=== PATIENT | male | born 1970 | race Caucasian/White ===

== ENCOUNTER → 2020-10-12 16:26 | Outpatient (BNVA) | payer MEDICAID, SELFPAY | PROVIDERS: PCP Internal Medicine Geriatric Medicine; Referring Provider Internal Medicine Geriatric Medicine; Visit Provider Urology | DX: Z76.89 Persons encountering health services in other specified circumstances (principal) ==

== ENCOUNTER → 2020-10-17 09:22 | Outpatient (BNVA) | payer MEDICAID, SELFPAY | PROVIDERS: PCP Internal Medicine Geriatric Medicine; Referring Provider Internal Medicine Geriatric Medicine; Visit Provider Internal Medicine Gastroenterology | DX: Z76.89 Persons encountering health services in other specified circumstances (principal) ==

== ENCOUNTER → 2021-01-16 09:11 | Outpatient (BNVA) | payer MEDICAID, SELFPAY | PROVIDERS: PCP Internal Medicine Geriatric Medicine; Visit Provider Internal Medicine Gastroenterology ==

== ENCOUNTER → 2021-04-24 13:15 | Outpatient (BNVA) | payer MEDICAID, SELFPAY | PROVIDERS: PCP Nurse Practitioner Family; Visit Provider Urology | DX: E29.1 Testicular hypofunction (principal) | CPT/HCPCS: 99212 ==

== ENCOUNTER 2021-10-17 17:24 | Outpatient (REF) | payer MEDICAID, SELFPAY ==
[2021-10-17 18:34] LABS: Hematocrit 46.6 % (42.0-52.0); Hemoglobin 15.6 g/dl (14.0-18.0); Mean Corpuscular HGB Conc 33.5 g/dl (31.0-36.0); Mean Corpuscular Hemoglobin 27.4 pg (27.0-33.0); Mean Corpuscular Volume 81.8 fL (80.0-98.0); Mean Platelet Volume 10.2 fL (9.4-12.4); Platelet Count 245 X10*3/uL (160-400); Red Cell Distribution Width 13.5 % (11.0-16.0); White Blood Count 9.1 X10*3/uL (4.8-10.8)
[2021-10-17 18:57] LABS: Prostate Specific Antigen 2.37 ng/mL (<0.05-4.0)
[2021-10-22 12:56] LABS: Testosterone, Total 357 ng/dL (250-1100)
== END 2021-10-17 17:25 | disposition home or self-care (01) ==
LOC: HO.LAB 17:24
PROVIDERS: PCP Internal Medicine Geriatric Medicine; Visit Provider Urology
DX: Z12.5 Encounter for screening for malignant neoplasm of prostate (principal); E29.1 Testicular hypofunction
CPT/HCPCS: 36415; 84153; 84403; 85027

== ENCOUNTER → 2021-10-23 08:41 | Outpatient (BNVA) | payer MEDICAID, SELFPAY | PROVIDERS: PCP Internal Medicine Geriatric Medicine; Visit Provider Urology ==

== ENCOUNTER 2021-12-10 16:03 | Outpatient (REF) | payer MEDICAID, SELFPAY ==
--- NOTE | 2021-12-10 | PFT_ITS ---
INDICATION: COPD. SPIROMETRY: The FEV1 to FVC of 80% with an FEV1 of 3.21 L which is 82% predicted and FVC of 4.03 L which is 82% predicted. No significant response to bronchodilators noted. Normal maximum voluntary ventilation 92% predicted. LUNG VOLUMES: Total lung capacity 96% predicted with an expiratory reserve volume of 32% predicted. DIFFUSION CAPACITY: DLCO 91% predicted. COMPARISONS: None. INTERPRETATION: No obstructive nor restrictive ventilatory defects identified. No significant response to bronchodilators noted. Normal maximum voluntary ventilation. Lung volumes are within normal limits except for decrease in the expiratory reserve volume secondary to an elevated BMI. Normal diffusing capacity. If asthma is in the differential, methacholine challenge may be helpful in assessing for hyper-reactive airways, otherwise clinical correlation warranted. Benito Lion MD MR/MODL / [id number]
== END 2021-12-10 16:04 | disposition home or self-care (01) ==
LOC: HO.RESP 16:03
PROVIDERS: PCP Internal Medicine Geriatric Medicine; Visit Provider Internal Medicine Geriatric Medicine
DX: J44.9 Chronic obstructive pulmonary disease, unspecified (principal)
CPT/HCPCS: 94060; 94727; 94729

== ENCOUNTER → 2022-05-24 10:43 | Outpatient (BNVA) | payer MEDICAID, SELFPAY | PROVIDERS: PCP Internal Medicine Geriatric Medicine; Visit Provider Internal Medicine Gastroenterology | DX: R10.13 Epigastric pain (principal); K21.9 Gastro-esophageal reflux disease without esophagitis | CPT/HCPCS: 99212 ==

== ENCOUNTER → 2022-05-27 11:11 | Outpatient (BNVA) | payer MEDICAID, SELFPAY | PROVIDERS: PCP Internal Medicine Geriatric Medicine; Visit Provider Surgery | DX: K42.9 Umbilical hernia without obstruction or gangrene (principal); R10.13 Epigastric pain; K21.9 Gastro-esophageal reflux disease without esophagitis | CPT/HCPCS: 99202 ==

== ENCOUNTER → 2022-06-07 09:40 | Outpatient (REF) | payer MEDICAID, SELFPAY ==
--- NOTE | 2022-06-07 09:45 | CA_ITS ---
Transthoracic Echocardiogram Patient (Last, First, Middle): Clive Lion, Gender: Male Date of : 1970 Age: 52 Procedure Date: 06/07/2022 Procedure Type: Transthoracic Echocardiogram Location: OP Height: 177.8 cm Weight: 97.07 kg BSA: 2.15 m2 Heart Rate: bpm BP: 112 / 70 mmHg Blog Writer: TO Referring MD: Monica La Symptoms: R06.01 ORTHOPNEA R06,0 EDEMA Study Quality: Fair ECG Rhythm: Sinus Conclusions: - The left ventricular systolic function is mild to moderately decreased. The calculated ejection fraction is 41% by biplane method. - There is evidence of regional wall motion abnormalities. - No obvious valvular pathology seen on this study. Findings Left Ventricle Mildly increased left ventricular cavity size. There is mildly increased left ventricular wall thickness. The left ventricular systolic function is mild to moderately decreased. The calculated ejection fraction is 41% by biplane method. There is evidence of regional wall motion abnormalities. Wall Motion Rest Echo Findings The inferoseptal wall, the mid inferior, and mid inferolateral segments are hypokinetic. The basal inferior, apical septum, and basal inferolateral segments are akinetic. Right Ventricle Mildly increased right ventricular cavity size. There is normal right ventricular systolic function. Atria Both atria are normal in size. Aortic Valve There is a normal trileaflet aortic valve. There is no aortic valve stenosis. There is no aortic valve regurgitation. Mitral Valve The mitral valve appears normal. There is mild mitral annular calcification. There is no mitral valve regurgitation. There is no mitral valve stenosis. Pulmonic Valve The pulmonic valve is likely normal. There is trace pulmonic valve regurgitation. Tricuspid Valve Normal tricuspid valve structure. There is trace tricuspid valve regurgitation. The pulmonary artery systolic pressure is normal. Great Vessels The aortic annulus, sinuses of valsalva, and asc aorta are normal in size. Venous The inferior vena cava was not well visualized. Pericardium/Pleural There is no evidence of pericardial effusion. Prior Study Comparison No prior study available for comparison. Recommendations, Care & Conclusions No obvious valvular pathology seen on this study. Measurements 2D Linear Measurements IVSd: 1.20 0.6-0.9/0.6-1.0 cm LVIDd: 5.74 3.9-5.3/4.2-5.9 cm LVIDd Index: 2.67 2.4-3.2/2.2-3.1 cm/m2 LVIDs: 4.38 2.0-3.6 cm LVPWd: 1.03 0.7-1.1 cm LA Diam: 3.50 2.7-3.8/3.0-4.0 cm LAIDs Index: 1.63 1.5-2.3 cm/m2 LV Mass: 329.83 67-162/88-224 g LV Mass Index: 153.41 43-95/49-115 g/m2 LVOT Diam: 2.10 3.0+(-)1.3 cm 2D Systolic Function EF 4C: 42.10 >55% EF 2C: 38.40 >55% EF BiP: 41.00 >55% Mitral Valve MV Pk E: 0.84 MV PK A: 0.75 MV Decel Time: 189.00 E/A: 1.10 E'Lateral: 10.60 E'Medial: 6.64 E/E' Med: 12.70 E/E' Lat: 7.90 PHT: 55.00 MVA PHT: 4.00 Decel [place]: 4.45 Aortic Valve AoV Pk Onur: 1.41 AoV Mn Onur: 1.10 AoV VTI: 0.29 AoV Pk Grad: 8.00 Aov Mn Grad: 5.00 ISAC Cont.VTI: 2.27 LVOT LVOT Pk Onur: 0.93 LVOT Mn Onur: 0.63 LVOT VTI: 0.19 LVOT Pk Grad: 3.00 LVOT Mn Grad: 2.00 LVOT Diam: 2.10 LVOT Area: 3.46 Diastolic Function MV Pk E: 0.84 MV Pk A: 0.75 E/A: 1.10 E'Medial: 6.64 E/E' Med: 12.70 E' Laterial: 10.60 E/E' Lat: 7.90 Right Ventricle TAPSE (mm): 24.00 TVS' Onur: 15.00 Tricuspid Valve TR Pk Onur: 1.87 TR Pk Grad: 14.00 RA Press: 3.00 RVSP: 17.00 Great Vessels Aorta Ao Asc: 3.30 2.1-3.4 cm Updated in Other Vendor System with Status of Final Luis Daniel Tracy MD electronically signed on 06/09/2022 11:05:16 AM with status of Final
== END ==
LOC: HO.CARD 09:40
PROVIDERS: Visit Provider Nurse Practitioner
DX: R06.01 Orthopnea (principal); R60.0 Localized edema
CPT/HCPCS: 93306; Q9957

== ENCOUNTER 2022-06-12 14:07 | Outpatient (REF) | payer MEDICAID, SELFPAY ==
[2022-06-12 14:53] LABS: Hematocrit 51.1 % (42.0-52.0); Hemoglobin 17.1 g/dl (14.0-18.0); Mean Corpuscular HGB Conc 33.5 g/dl (31.0-36.0); Mean Corpuscular Hemoglobin 27.4 pg (27.0-33.0); Mean Corpuscular Volume 81.8 fL (80.0-98.0); Mean Platelet Volume 10.6 fL (9.4-12.4); Platelet Count 194 X10*3/uL (160-400); Red Blood Count 6.25 X10*6/uL (4.60-5.80); Red Cell Distribution Width 16.5 % (11.0-16.0); White Blood Count 8.8 X10*3/uL (4.8-10.8)
[2022-06-12 15:36] LABS: Prostate Specific Antigen 1.94 ng/mL (<0.05-4.0)
[2022-06-17 19:18] LABS: Testosterone, Total 604 ng/dL (250-1100)
== END 2022-06-12 14:08 | disposition home or self-care (01) ==
LOC: HO.LAB 14:07
PROVIDERS: PCP Internal Medicine Geriatric Medicine; Visit Provider Urology
DX: Z12.5 Encounter for screening for malignant neoplasm of prostate (principal); E29.1 Testicular hypofunction
CPT/HCPCS: 36415; 84153; 84403; 85027

== ENCOUNTER 2022-06-26 15:44 | Outpatient (REF) | payer MEDICAID, SELFPAY ==
--- NOTE | ~2022-06-26 | XR_ITS ---
EXAMINATION: XR HIP, RIGHT CLINICAL INFORMATION: Right hip pain. COMPARISON: None TECHNIQUE: Two views of the right hip. FINDINGS: The right hip joint space is maintained normal. No bony erosive changes, loose bodies or fracture seen. There is bony density along the lesser trochanter likely old injury. Soft tissue calcification is seen lateral to the right hip joint. The soft tissues are normal. XR/XR hip RT min 2V IMPRESSION: Soft tissue calcification lateral to the right hip joint likely calcific bursitis. No visible acute fracture or dislocation seen.
== END 2022-06-26 15:45 | disposition home or self-care (01) ==
LOC: HO.XRAY 15:44
PROVIDERS: PCP Internal Medicine Geriatric Medicine; Visit Provider Internal Medicine Geriatric Medicine
DX: M25.551 Pain in right hip (principal); N28.1 Cyst of kidney, acquired
CPT/HCPCS: 73502

== ENCOUNTER 2022-08-07 09:57 | Outpatient (REF) | payer MEDICAID, SELFPAY ==
--- NOTE | ~2022-08-07 | XR_ITS ---
EXAMINATION: XR LUMBOSACRAL SPINE CLINICAL INFORMATION: Lower back pain COMPARISON: 02/24/2019 TECHNIQUE: Three views of the lumbosacral spine. FINDINGS: No fracture or subluxation. Vertebral body height and alignment maintained. Disc spaces are narrowed throughout with endplate osteophytes and sclerosis. Mild facet arthropathy at the mid to lower lumbar spine. The sacroiliac joints are symmetric. The visualized sacrum is intact. Normal bowel gas pattern. XR/XR lumbar spine 2-3V IMPRESSION: Mild to moderate degenerative changes of the lumbar spine which are fairly similar to prior.
[2022-08-07 10:46] LABS: Alanine Aminotransferase 76 U/L (0-40); Albumin Level 4.3 g/dL (3.5-5.0); Alkaline Phosphatase 51 U/L (39-117); Anion Gap 17 (12-20); Aspartate Amino Transferase 41 U/L (5-37); Bilirubin Total 0.7 mg/dL (0.0-1.0); Blood Urea Nitrogen 14 mg/dL (9-16); Calcium 9.4 mg/dL (8.4-10.2); Carbon Dioxide 27 mmol/L (22-29); Chloride 102 mmol/L (96-108); Cholesterol 142 mg/dL; Estimated Glomerular Filt Rate > 60; Glucose Random 127 mg/dL (60-115); HDL Cholesterol 35 mg/dL; LDL Cholesterol Calculated 61 mg/dl; Sodium 142 mmol/L (135-145); Total Protein 7.7 g/dL (6.5-8.0); Triglycerides 234 mg/dL
== END 2022-08-07 09:58 | disposition home or self-care (01) ==
LOC: HO.LAB 09:57
PROVIDERS: PCP Internal Medicine Geriatric Medicine; Visit Provider Internal Medicine Geriatric Medicine
DX: I11.0 Hypertensive heart disease with heart failure (principal); I50.9 Heart failure, unspecified; G89.29 Other chronic pain; M54.50 Low back pain, unspecified; Z00.00 Encounter for general adult medical examination without abnormal findings; Z13.1 Encounter for screening for diabetes mellitus; Z79.899 Other long term (current) drug therapy
CPT/HCPCS: 36415; 72100; 80053; 80061

== ENCOUNTER 2022-08-14 14:56 | Outpatient (REF) | payer MEDICAID, SELFPAY ==
--- NOTE | ~2022-08-14 | US_ITS ---
EXAMINATION: US RETROPERITONEAL LIMITED (RENAL ONLY) CLINICAL INFORMATION: Cyst left kidney, acquired. COMPARISON: Ultrasound abdomen limited 03/22/2020. CT abdomen and pelvis 03/06/2020. Ultrasound abdomen complete 10/28/2020. TECHNIQUE: Real-time imaging of the kidneys. FINDINGS: RIGHT KIDNEY: 11.9 x 4.5 x 6.0 cm (SAG x AP x TRV). The kidney is normal in size, contour, and echogenicity. Renal cortical thickness is normal. No calculi or focal parenchymal lesions. No hydronephrosis. LEFT KIDNEY: 13.8 x 5.3 x 5.5 cm (SAG x AP x TRV). The kidney is normal in size, contour, and echogenicity. Renal cortical thickness is normal. No renal calculi or hydronephrosis. There is anechoic cyst lower pole measuring 2.2 x 1.6 x 1.6 cm and complex cyst in midpole measuring 2.2 x 2.0 x 1.5 cm US/US renal BI IMPRESSION: Unremarkable right kidney. Simple and complex cyst left kidney.
== END 2022-08-14 14:57 | disposition home or self-care (01) ==
LOC: HO.US 14:56
PROVIDERS: Visit Provider Internal Medicine Geriatric Medicine
DX: N28.1 Cyst of kidney, acquired (principal); M25.551 Pain in right hip
CPT/HCPCS: 76775; 93005; 99202

== ENCOUNTER → 2022-09-18 10:11 | Outpatient (REF) | payer MEDICAID, SELFPAY | LOC: HO.CARD 10:11 | PROVIDERS: PCP Internal Medicine Geriatric Medicine; Visit Provider Internal Medicine | DX: Z13.89 Encounter for screening for other disorder (principal) ==

== ENCOUNTER → 2022-11-26 13:35 | Outpatient (BNVA) | payer MEDICAID, SELFPAY | PROVIDERS: PCP Internal Medicine Geriatric Medicine; Referring Provider Internal Medicine Geriatric Medicine; Visit Provider Nurse Practitioner Family | DX: I25.10 Atherosclerotic heart disease of native coronary artery without angina pectoris (principal); I42.9 Cardiomyopathy, unspecified; I10 Essential (primary) hypertension; G47.30 Sleep apnea, unspecified | CPT/HCPCS: 99212 ==

== ENCOUNTER → 2022-12-03 06:01 | Outpatient (REF) | payer MEDICAID, SELFPAY | LOC: HO.CARD 06:01 | PROVIDERS: PCP Internal Medicine Geriatric Medicine; Visit Provider Internal Medicine | DX: Z13.89 Encounter for screening for other disorder (principal) ==

== ENCOUNTER → 2022-12-23 08:37 | Outpatient (REF) | payer MEDICAID, SELFPAY ==
--- NOTE | ~2022-12-23 | NM_ITS ---
Myocardial perfusion study Indication: Atherosclerotic heart disease to evaluate for myocardial ischemia Technique: The patient was brought in for a Lexiscan perfusion study on 12/23/2022. Patient performed low-level exercise and was injected 0.4 mg of Lexiscan intravenously. Within a minute of injection, 35 mCi of sestamibi was given intravenously. Images were obtained using the SPECT gamma camera interlaced with the gating device. Images were obtained in supine position. Resting perfusion study was performed on 12/24/2022. Patient was administered 35 mCi of sestamibi intravenously at rest. Images were then obtained in supine position. Images obtained with and without CT attenuation. Total DLP 118 mGy-cm. Images were processed with the software and compared side to side in short axis, horizontal long axis and vertical long axis views. Findings: The stress perfusion study showed non attenuated images show moderately to severely reduced uptake in the basal and mid inferior wall, moderately severely reduced uptake in basal inferolateral and mildly reduced uptake in the basal lateral wall of the LV myocardium. The anterior wall and the distal septum remainder of the lateral and inferolateral wall are normally perfused.. The gated study shows reduced LV systolic function with calculated LVEF of 37%. LV cavity is moderately dilated size. The gated study shows diffusely reduced wall thickening and contraction of segments. Resting study shows improved uptake in the mid inferior as well as the basal inferior and absent uptake in the basal inferolateral basal lateral cardiac. Gating at rest reveals diffuse wall motion with ejection fraction at 39%. The findings are consistent with basal and mid inferior wall ischemia with fixed defect in the inferolateral and basal lateral. This is suggestive wall basal and mid inferior ischemia as well as the basal inferolateral and basal lateral wall.. NM/NM raji perf SPECT rest & str Impression: 1. Myocardial perfusion imaging study shows basal and mid inferior wall ischemia with infarction basal inferolateral and lateral wall 2. Gated LVEF is 37% with stress and 39% with rest 3. Transient ischemic dilatation not present but LV cavity is dilated EKG is nondiagnostic for ischemia
--- NOTE | 2022-12-23 09:58 | CA_ITS ---
Acquisition Time: 2022-12-23 09:08:20 Total Exercise Time: 00:03:10 Test Indications: I25.10 Medications: See H Protocol: ILDA Max HR: 139 BPM 83% of Pred: 167 BPM Max BP: 210/080 mmHG Max Work Load: 4.8 METS Exercise stress trest with exercise 3 min 10 sec of Ilda protocol, achieving 82% MPHR briefly, with request to stop due to significant sob, no chest discomfort, with isolated PVCs and ventricular cuplets, with hypertensive response to exercise with max BP 210/80, without ischemic changes at achieved workload. Unable to complete test with exercise as he needed to stop abruptly. Once breathing improved, testing changed to a pharmacological stress test with Lexiscan injection, while sitting and kicking his legs, with isolated PVCs and cuplets, with normotensive response to injection, with nondiagnostic EKG for ischemia. Nuclear images pending. Test reviewed with Dr Valle. Referred By: Luis Daniel Tracy Overread By: DREW VARGAS
[2022-12-23 12:00] LABS: Prostate Specific Antigen 2.23 ng/mL (<0.05-4.0)
[2022-12-30 12:44] LABS: Testosterone, Total 672 ng/dL (250-1100)
== END ==
LOC: HO.CARD 08:37
PROVIDERS: Urology; Visit Provider Internal Medicine
DX: I25.10 Atherosclerotic heart disease of native coronary artery without angina pectoris (principal); E29.1 Testicular hypofunction
CPT/HCPCS: 36415; 78452; 84153; 84403; 85014; 93017; A9500; J2785

== ENCOUNTER 2023-01-02 14:10 | Outpatient (REF) | payer MEDICAID, SELFPAY ==
[2023-01-02 15:30] LABS: Hematocrit 48.4 % (42.0-52.0); Hemoglobin 15.6 g/dl (14.0-18.0); Mean Corpuscular HGB Conc 32.2 g/dl (31.0-36.0); Mean Corpuscular Hemoglobin 26.3 pg (27.0-33.0); Mean Corpuscular Volume 81.6 fL (80.0-98.0); Mean Platelet Volume 10.2 fL (9.4-12.4); Platelet Count 191 X10*3/uL (160-400); Red Blood Count 5.93 X10*6/uL (4.60-5.80); Red Cell Distribution Width 13.8 % (11.0-16.0); White Blood Count 8.6 X10*3/uL (4.8-10.8)
[2023-01-02 15:37] LABS: INTERNATIONAL NORM RATIO 0.9 (0.9-1.1); Prothrombin Time 10.8 SEC (10.0-13.1)
[2023-01-02 16:04] LABS: Anion Gap 12 (12-20); Blood Urea Nitrogen 14 mg/dL (9-16); Calcium 9.3 mg/dL (8.4-10.2); Carbon Dioxide 32 mmol/L (22-29); Chloride 99 mmol/L (96-108); Estimated Glomerular Filt Rate > 60; Glucose Random 276 mg/dL (60-115); Potassium 4.6 mmol/L (3.3-5.1); Sodium 138 mmol/L (135-145)
== END 2023-01-02 14:11 | disposition home or self-care (01) ==
LOC: HO.LAB 14:10
PROVIDERS: PCP Internal Medicine Geriatric Medicine; Visit Provider Internal Medicine
DX: I25.10 Atherosclerotic heart disease of native coronary artery without angina pectoris (principal); I42.9 Cardiomyopathy, unspecified; I10 Essential (primary) hypertension; G47.30 Sleep apnea, unspecified
CPT/HCPCS: 36415; 80048; 85027; 85610; 99212

== ENCOUNTER → 2023-01-07 10:57 | Outpatient (BNVA) | payer MEDICAID, SELFPAY | PROVIDERS: PCP Internal Medicine Geriatric Medicine; Visit Provider Urology | DX: Z13.89 Encounter for screening for other disorder (principal) ==

== ENCOUNTER → 2023-02-18 15:04 | Outpatient (BNVA) | payer MEDICAID, SELFPAY | PROVIDERS: PCP Internal Medicine Geriatric Medicine; Referring Provider Internal Medicine Geriatric Medicine; Visit Provider Nurse Practitioner Family | DX: I25.10 Atherosclerotic heart disease of native coronary artery without angina pectoris (principal); R93.1 Abnormal findings on diagnostic imaging of heart and coronary circulation; I42.9 Cardiomyopathy, unspecified; R06.02 Shortness of breath; I10 Essential (primary) hypertension; G47.30 Sleep apnea, unspecified | CPT/HCPCS: 99212 ==

== ENCOUNTER → 2023-02-27 13:41 | Outpatient (BNVA) | payer MEDICAID, SELFPAY | PROVIDERS: PCP Internal Medicine Geriatric Medicine; Visit Provider Surgery Vascular Surgery | DX: I83.11 Varicose veins of right lower extremity with inflammation (principal) | CPT/HCPCS: 99202 ==

== ENCOUNTER 2023-03-14 10:05 | Outpatient (REF) | payer MEDICAID, SELFPAY ==
--- NOTE | ~2023-03-14 | US_ITS ---
EXAMINATION: US LOWER EXTREMITY VENOUS (REFLUX EXAM), BILATERAL CLINICAL INDICATION: Varicose veins with lower extremity pain and inflammation COMPARISON: None. TECHNIQUE: Color flow triplex imaging and compression Doppler was performed to evaluate both the deep and the superficial systems bilaterally. To evaluate the superficial system, the examination was performed in the upright position. Color-flow Doppler ultrasound and compression ultrasound were utilized. In addition, maneuvers were utilized to demonstrate reflux. FINDINGS: 1. DEEP VENOUS ULTRASOUND OF THE RIGHT LOWER EXTREMITY: Common Femoral Vein: Compressible, normal respiratory variation and augmented flow. Femoral Vein: Compressible, normal color flow and augmentation. Popliteal Vein: Compressible, normal augmentation. Deep Reflux: There is no evidence of reflux in the deep system in either the common femoral vein or the popliteal vein. There is no evidence of a La's cyst. 2. SUPERFICIAL ULTRASOUND WITH DOPPLER OF RIGHT LOWER EXTREMITY: GREAT SAPHENOUS VEIN: Saphenofemoral Junction: 1.0 cm; Reflux: 0 ms Proximal Thigh: 0.5 cm; Reflux: 0 ms Mid Thigh: 0.5 cm; Reflux: 3604 ms Above Knee: 0.5 cm; Reflux: 3000 ms At Knee: 0.4 cm; Reflux: 0 ms Below Knee: 0.5 cm; Reflux: 2372 ms Mid Calf: 0.3 cm; Reflux: 1380 ms Ankle: 0.4 cm; Reflux: 0 ms DUPLICATED MEDIAL GREAT SAPHENOUS VEIN: Diameter: 0.3 cm Reflux: None DUPLICATED LATERAL GREAT SAPHENOUS VEIN: Diameter: None Imaged Reflux: NA SMALL SAPHENOUS VEIN: Proximal: 0.2 cm; Reflux: 0 ms Distal: 0.3 cm; Reflux: 0 ms VEIN OF GIACOMINI: None Imaged. PERFORATORS: Location: None Imaged Size: NA Reflux: NA VARICOSITIES: Location: Distal thigh and proximal calf Size: 0.4 to 0.6 cm Reflux: Ranging from 2.1 to 3.6 seconds 3. DEEP VENOUS ULTRASOUND OF THE LEFT LOWER EXTREMITY: Common Femoral Vein: Compressible, normal respiratory variation and augmented flow. Femoral Vein: Compressible, normal color flow and augmentation. Popliteal Vein: Compressible, normal augmentation. Deep Reflux: There is no evidence of reflux in the deep system in either the common femoral vein or the popliteal vein. There is no evidence of a La's cyst. 4. SUPERFICIAL ULTRASOUND WITH DOPPLER OF LEFT LOWER EXTREMITY: GREAT SAPHENOUS VEIN: Saphenofemoral Junction: 0.8 cm; Reflux: 0 ms Proximal Thigh: 0.6 cm; Reflux: 0 ms Mid Thigh: 0.4 cm; Reflux: 0 ms Above Knee: 0.3 cm; Reflux: 0 ms At Knee: 0.4 cm; Reflux: 0 ms Below Knee: 0.3 cm; Reflux: 0 ms Mid Calf: 0.4 cm; Reflux: 0 ms Ankle: 0.4 cm; Reflux: 3604 ms DUPLICATED MEDIAL GREAT SAPHENOUS VEIN: Diameter: None Imaged Reflux: NA DUPLICATED LATERAL GREAT SAPHENOUS VEIN: Diameter: 0.6 cm Reflux: None SMALL SAPHENOUS VEIN: Proximal: 0.2 cm; Reflux: 0 ms Distal: 0.3 cm; Reflux: 0 ms VEIN OF GIACOMINI: None Imaged. PERFORATORS: Location: None Imaged Size: NA Reflux: NA VARICOSITIES: Location: Distal calf Size: 0.3 cm Reflux: 3.6 seconds US/US venous duplex LE BI IMPRESSION: Right: Severe reflux in the right great saphenous vein. Varicose veins in the distal thigh and proximal calf as described above Left: Focal reflux in the distal great saphenous vein. Varicose vein in the distal calf as described above
== END 2023-03-14 10:06 | disposition home or self-care (01) ==
LOC: HO.US 10:05
PROVIDERS: PCP Internal Medicine Geriatric Medicine; Visit Provider Surgery Vascular Surgery
DX: I83.11 Varicose veins of right lower extremity with inflammation (principal)
CPT/HCPCS: 93970

== ENCOUNTER 2023-04-04 14:39 | Outpatient (REF) | payer MEDICAID, SELFPAY ==
[2023-04-04 15:56] LABS: Basophils Absolute Auto 0.1 X10*3/uL (0.0-0.2); Basophils Percent Auto 0.9 % (0-2); Eosinophils Absolute Auto 0.5 X10*3/uL (0.0-0.4); Eosinophils Percent Auto 5.9 % (0-4); Hematocrit 49.9 % (42.0-52.0); Hemoglobin 15.8 g/dl (14.0-18.0); Imm Gran Abs Auto 0.04 X10*3/uL (0.00-0.03); Imm Gran Pct Auto 0.5 % (0.0-0.4); Lymphocytes Percent Auto 25.8 % (20-40); MANUAL DIFF FLAG NO; Mean Corpuscular HGB Conc 31.7 g/dl (31.0-36.0); Mean Corpuscular Hemoglobin 26.4 pg (27.0-33.0); Mean Corpuscular Volume 83.4 fL (80.0-98.0); Mean Platelet Volume 10.5 fL (9.4-12.4); Monocytes Absolute Auto 0.7 X10*3/uL (0.1-1.2); Neutrophils Absolute Auto 4.5 x10*3/uL (2.0-8.3); Neutrophils Percent Auto 57.9 % (45-73); Platelet Count 178 X10*3/uL (160-400); Red Blood Count 5.98 X10*6/uL (4.60-5.80); Red Cell Distribution Width 15.2 % (11.0-16.0); White Blood Count 7.7 X10*3/uL (4.8-10.8)
[2023-04-04 16:17] LABS: INTERNATIONAL NORM RATIO 0.9 (0.9-1.1); Prothrombin Time 10.5 SEC (10.0-13.1)
[2023-04-04 19:30] LABS: Anion Gap 15 (12-20); Blood Urea Nitrogen 17 mg/dL (9-16); Calcium 9.8 mg/dL (8.4-10.2); Carbon Dioxide 30 mmol/L (22-29); Chloride 100 mmol/L (96-108); Estimated Glomerular Filt Rate > 60; Glucose Random 198 mg/dL (60-115); Potassium 4.5 mmol/L (3.3-5.1); Sodium 140 mmol/L (135-145)
== END 2023-04-04 14:40 | disposition home or self-care (01) ==
LOC: HO.LAB 14:39
PROVIDERS: Visit Provider Nurse Practitioner Family
DX: R93.1 Abnormal findings on diagnostic imaging of heart and coronary circulation (principal)
CPT/HCPCS: 36415; 80048; 85025; 85610

== ENCOUNTER → 2023-04-10 11:26 | Outpatient (BNVA) | payer MEDICAID, SELFPAY | PROVIDERS: PCP Internal Medicine Geriatric Medicine; Visit Provider Surgery Vascular Surgery | DX: I83.11 Varicose veins of right lower extremity with inflammation (principal) | CPT/HCPCS: 99212 ==

== ENCOUNTER → 2023-04-24 13:52 | Outpatient (BNVA) | payer MEDICAID, SELFPAY | PROVIDERS: PCP Internal Medicine Geriatric Medicine; Referring Provider Internal Medicine Geriatric Medicine; Visit Provider Nurse Practitioner Family | DX: R06.02 Shortness of breath (principal); I42.9 Cardiomyopathy, unspecified; I10 Essential (primary) hypertension; I25.10 Atherosclerotic heart disease of native coronary artery without angina pectoris; R93.1 Abnormal findings on diagnostic imaging of heart and coronary circulation; G47.30 Sleep apnea, unspecified; Z98.890 Other specified postprocedural states | CPT/HCPCS: 99212 ==

== ENCOUNTER → 2023-05-07 09:08 | Outpatient (REF) | payer MEDICAID, SELFPAY ==
--- NOTE | 2023-05-07 09:11 | CA_ITS ---
Transthoracic Echocardiogram Patient (Last, First, Middle): Clive León, Gender: Male Date of : 1970 Age: 53 Procedure Date: 05/07/2023 Procedure Type: Transthoracic Echocardiogram Location: OP Height: 177.8 cm Weight: 108.86 kg BSA: 2.26 m2 Heart Rate: bpm BP: 136 / 84 mmHg Corner Bead Operator: AUSTEN Referring MD: Mary Ferrell RECREATION THERAPY DIRECTOR-C Transcript Clerk: Blu Fuentes MD Symptoms: I42.9 - Cardiomyopathy, unspecified Study Quality: Fair ECG Rhythm: Sinus Conclusions: - 1. Moderate to severe LV systolic dysfunction with grade 1 diastolic dysfunction 2. Normal cardiac valvular Doppler 3. No gross pericardial effusion Findings Procedure Information The patient declines contrast. Left Ventricle Mildly increased left ventricular cavity size. There is mildly increased left ventricular wall thickness. The left ventricular systolic function is moderate to severely decreased. The visually estimated ejection fraction is between 30-35%. Spectral Doppler is indicative of an impaired relaxation filling pattern. E/E prime ratio is <8, consistent with normal filling pressures. Evidence suggests grade I (mild) diastolic dysfunction. Right Ventricle Normal right ventricular cavity size and systolic function. Atria The left atrium is mildly dilated. There is no evidence of interatrial shunt. The right atrium is normal in size. Aortic Valve Normal aortic valve structure and function. There is no aortic valve stenosis. There is no aortic valve regurgitation. Mitral Valve Normal mitral valve structure and function. There is trace mitral valve regurgitation. There is no mitral valve stenosis. Tricuspid Valve Likely normal tricuspid valve structure and function. Tricuspid regurgitation envelope is inadequate for calculation of right ventricular systolic pressure. Normal right atrial pressure. Great Vessels The aorta was not well visualized. The pulmonary artery was not well visualized. Venous The inferior vena cava is normal in size and collapses greater than 50% with inspiration. Pericardium/Pleural There is no evidence of pericardial effusion. Measurements 2D Linear Measurements IVSd: 1.29 0.6-0.9/0.6-1.0 cm LVIDd: 5.64 3.9-5.3/4.2-5.9 cm LVIDd Index: 2.50 2.4-3.2/2.2-3.1 cm/m2 LVIDs: 4.28 2.0-3.6 cm LVPWd: 1.29 0.7-1.1 cm Ao Root: 3.00 2.1-3.5 cm LA Diam: 4.30 2.7-3.8/3.0-4.0 cm LAIDs Index: 1.90 1.5-2.3 cm/m2 LV Mass: 391.05 67-162/88-224 g LV Mass Index: 173.03 43-95/49-115 g/m2 LVOT Diam: 2.50 3.0+(-)1.3 cm 2D Systolic Function EF 4C: 30.80 >55% EF 2C: 36.20 >55% EF BiP: 33.00 >55% Mitral Valve MV Pk E: 0.57 MV PK A: 1.03 MV Decel Time: 138.00 E/A: 0.50 E'Lateral: 8.16 E'Medial: 5.33 E/E' Med: 10.60 E/E' Lat: 6.90 PHT: 40.00 MVA PHT: 5.50 Decel [place]: 4.13 Aortic Valve AoV Pk Onur: 1.42 AoV Mn Onur: 1.00 AoV VTI: 0.35 AoV Pk Grad: 8.00 Aov Mn Grad: 5.00 ISAC Cont.VTI: 2.78 LVOT LVOT Pk Onur: 0.91 LVOT Mn Onur: 0.63 LVOT VTI: 0.20 LVOT Pk Grad: 3.00 LVOT Mn Grad: 2.00 LVOT Diam: 2.50 LVOT Area: 4.91 Diastolic Function MV Pk E: 0.57 MV Pk A: 1.03 E/A: 0.50 E'Medial: 5.33 E/E' Med: 10.60 E' Laterial: 8.16 E/E' Lat: 6.90 Right Ventricle TAPSE (mm): 23.00 TVS' Onur: 15.00 Tricuspid Valve TR Pk Onur: 1.90 TR Pk Grad: 14.00 Great Vessels Aorta Ao Root-2D: 3.00 2.0-3.7 cm Pulmonary Valve PV Pk Onur: 1.18 Peak PV Grad: 6.00 Updated in Other Vendor System with Status of Final Blu Fuentes MD electronically signed on 05/08/2023 2:17:52 PM with status of Final
== END ==
LOC: HO.CARD 09:08
PROVIDERS: PCP Internal Medicine Geriatric Medicine; Visit Provider Nurse Practitioner Family
DX: I42.9 Cardiomyopathy, unspecified (principal); R06.02 Shortness of breath
CPT/HCPCS: 93306

== ENCOUNTER → 2023-05-16 07:43 | Outpatient (BNVA) | payer MEDICAID, SELFPAY | PROVIDERS: PCP Internal Medicine Geriatric Medicine; Visit Provider Surgery Vascular Surgery | DX: I83.11 Varicose veins of right lower extremity with inflammation (principal) | CPT/HCPCS: 36482 ==

== ENCOUNTER 2023-05-19 10:34 | Outpatient (REF) | payer MEDICAID, SELFPAY ==
--- NOTE | ~2023-05-19 | US_ITS ---
EXAMINATION: TRIPLEX SCANNING OF RIGHT LOWER EXTREMITY; SUPERFICIAL ULTRASOUND WITH DOPPLER OF RIGHT LOWER EXTREMITY CLINICAL INFORMATION: Status post Venaseal of a 1.5 cm segment of the right great saphenous vein Ambulatory phlebectomy performed: No COMPARISON: preprocedure studies. TECHNIQUE: Color flow triplex imaging and compression Doppler were performed as well as superficial ultrasound with Doppler. FINDINGS: RIGHT LOWER EXTREMITY DEEP VENOUS SYSTEM: Respiratory variation, normal compression and augmented flow are noted throughout the lower extremity. The visualized common femoral vein, femoral vein, profunda femoral vein, popliteal vein and the calf veins show no evidence of deep venous thrombosis. There is no evidence of La's cyst. SUPERFICIAL VENOUS SYSTEM: The great saphenous vein is occluded from the access site to just before the saphenofemoral junction. There is no extension of thrombus into the deep system. US/US venous duplex LE RT IMPRESSION: 1. No evidence of DVT. 2. Noncompressibility and occlusion of the right great saphenous vein post Venaseal.
== END 2023-05-19 10:35 | disposition home or self-care (01) ==
LOC: HO.US 10:34
PROVIDERS: PCP Internal Medicine Geriatric Medicine; Visit Provider Surgery Vascular Surgery
DX: M79.604 Pain in right leg (principal)
CPT/HCPCS: 93971

== ENCOUNTER 2023-05-29 14:20 | Outpatient (AMB) | payer MEDICAID, SELFPAY ==
--- NOTE | 2023-05-29 14:29 | A.OFFVIS_ITS ---
Intake Intake Visit Reasons: 2 wk post Right GSV Venaseal 05/16/23 Intake Note: Patient is here for a 2 week post right GSV Venaseal 05/16/23. Patient stated hes feeling better Allergies Penicillins [PENICILLINS] Allergy (Intermediate, Verified 05/29/23 14:31) RASH HPI 2 wk post Right GSV Venaseal 05/16/23 HPI Details Very pleasant 53-year-old gentleman presents follow-up status post right great saphenous vein ablation. Reports he is doing extremely well. No interval issues. He reports that the right lower extremity swelling and discomfort have improved. He has no significant discomfort on the left lower extremity. [facility] Medical History Anxiety Arthritis Back pain Depression Fatty liver GERD (gastroesophageal reflux disease) Hepatitis HTN (hypertension) Opioid dependence Sleep apnea Sleep disturbance Surgical History H/O colonoscopy History of esophagogastroduodenoscopy (EGD) Hx of hemorrhoidectomy Family History Father No problems noted. Mother Hx of colon cancer, stage IV Brother Lesion of liver greater than 1 cm in diameter with history of extrahepatic malignant neoplasm Social History Household Members: Spouse Alcohol intake: former Year quit: Nov Patient Tobacco Use Status: Former Tobacco user Quit Date: Sep 2022 Years Smoked: 30+ Current occupational status: unemployed Review of Systems Const All systems reviewed & are unremarkable except as noted in HPI and below Reports no additional complaints ENT Reports Normal hearing present Card Denies chest pain, Denies chest pain at rest, Denies chest pain with activity and Denies pedal edema Resp Denies cough GI Denies abdominal pain Musc Denies abnormal gait, Denies muscle cramps and Denies radiating pain into limb Skin/Breast Denies skin ulcer and Denies wounds Neuro Reports Normal hearing present and Denies abnormal gait Psych Reports no additional complaints Physical Exam Const General: cooperative, healthy appearing and comfortable Orientation/consciousness: oriented to person, oriented to place and oriented to time HEENT Head: Yes normal to inspection Neck Neck: Yes normal visual inspection Carotids: no bruits Chest Chest palpation & inspection: normal inspection of the chest Resp Effort & Inspection: normal respiratory effort and able to speak in complete sentences Auscultation: clear to auscultation bilaterally, no crackles, no rales, no rhonchi and no wheezes Cardio Rate: regular rate Rhythm: regular rhythm Heart sounds: S1 normal heart sound present and S2 normal heart sound present Bruits: no carotid bruits Peripheral pulses: Peripheral pulses 2+ throughout GI Inspection: Yes normal to inspection Skin Wounds: no wounds Hair: normal Neuro General: oriented to person, oriented to place and oriented to time Cranial nerves: Yes CN's II-XII intact bilaterally and Yes Normal hearing present Cognition (Neuro): normal cognition Motor exam (neuro): 5/5 motor strength present throughout Extrem Other: venous exam: No significant superficial varicosities or spider telangiectasias, minimal edema General: No clubbing, No cyanosis and No edema Psych Appearance: grossly normal Mental Status: mental status grossly normal Speech and movement: Normal speech and movement present Results Reviewed Results Reviewed: Brief summary of venous insufficiency testing is as follows: right great saphenous vein: Ablate right small saphenous vein: negative right accessory vein: none present left great saphenous vein: negative left small saphenous vein: negative left accessory vein: none present Please note there is no evidence of any venous aneurysms or significant tortuosity Assessment & Plan Assessment & Plan (1) Varicose veins of right lower extremity with inflammation: Comment: 05/16/2023 - right great saphenous vein Cyanoacralate ablation Code(s): I83.11 - Varicose veins of right lower extremity with inflammation Plan: The patient has done extremely well with all venous treatments. Patient's may often experience postprocedure phlebitic episodes and I have discussed with the patient use of warm compresses and NSAIDS if tolerated for pain discomfort. In addition, I have discussed continued conservative measures including use of compression, leg elevation, and exercise. The patient was also given an information sheet regarding appropriate use of compression stockings and future purchases. Thank you for allowing us to care for your patient with venous disease. Coding Level of Care Code Est Pt Level 3 (27199) Diagnoses Varicose veins of right lower extremity with inflammation I83.11
== END 2023-05-29 14:52 | disposition home or self-care (01) ==
PROVIDERS: PCP Internal Medicine Geriatric Medicine; Visit Provider Surgery Vascular Surgery
DX: I83.11 Varicose veins of right lower extremity with inflammation (principal)
CPT/HCPCS: 99213

== ENCOUNTER → 2023-05-29 14:20 | Outpatient (BNVA) | payer MEDICAID, SELFPAY | PROVIDERS: PCP Internal Medicine Geriatric Medicine; Visit Provider Surgery Vascular Surgery | DX: I83.11 Varicose veins of right lower extremity with inflammation (principal) | CPT/HCPCS: 99212 ==

== ENCOUNTER 2023-06-17 12:51 | Outpatient (REF) | payer MEDICAID, SELFPAY ==
[2023-06-17 14:00] LABS: Influenza A PCR NEGATIVE (Negative); Influenza B PCR NEGATIVE (Negative); Resp Syncy Virus RNA Qual PCR NEGATIVE (Negative); SARS COV2 PCR INHOUSE NEGATIVE (Negative)
== END 2023-06-17 12:52 | disposition home or self-care (01) ==
LOC: HO.HHCLNP 12:51
PROVIDERS: Visit Provider Internal Medicine Geriatric Medicine
DX: R05.1 Acute cough (principal); Z20.822 Contact with and (suspected) exposure to COVID-19
CPT/HCPCS: 0241U

== ENCOUNTER 2023-06-25 14:39 | Outpatient (REF) | payer MEDICAID, SELFPAY ==
[2023-06-25 15:45] LABS: Hematocrit 51.6 % (42.0-52.0); Hemoglobin 16.8 g/dl (14.0-18.0); Mean Corpuscular HGB Conc 32.6 g/dl (31.0-36.0); Mean Corpuscular Hemoglobin 25.9 pg (27.0-33.0); Mean Corpuscular Volume 79.5 fL (80.0-98.0); Mean Platelet Volume 10.6 fL (9.4-12.4); Platelet Count 188 X10*3/uL (160-400); Red Blood Count 6.49 X10*6/uL (4.60-5.80); Red Cell Distribution Width 14.6 % (11.0-16.0); White Blood Count 8.7 X10*3/uL (4.8-10.8)
[2023-06-25 16:28] LABS: Prostate Specific Antigen 2.26 ng/mL (<0.05-4.0)
[2023-06-30 08:38] LABS: Testosterone, Total 870 ng/dL (250-1100)
== END 2023-06-25 14:40 | disposition home or self-care (01) ==
LOC: HO.LAB 14:39
PROVIDERS: PCP Internal Medicine Geriatric Medicine; Visit Provider Urology
DX: E29.1 Testicular hypofunction (principal)
CPT/HCPCS: 36415; 84153; 84403; 85027

== ENCOUNTER 2023-07-10 11:46 | Outpatient (AMB) | payer MEDICAID, SELFPAY ==
--- NOTE | 2023-07-10 12:03 | A.OFFVIS_ITS ---
Intake Intake Visit Reasons: 6m/CBC/TESTO/PSA(set) Intake Note: Patient is present for Follow Up Labs Urology Med:Testosterone Antibiotic Allergy: Penicillins Blood Thinner: Aspirin [facility]: [facility] Allergies Penicillins [PENICILLINS] Allergy (Intermediate, Verified 07/10/23 12:04) RASH HPI HPI Comments History of Present Illness Details Clive is a pleasant male. He is a patient of Dr Wright. He is seen for the following urologic conditions - hypogonadism - erectile dysfunction setting of diabetes Lab work in range - T 840 Current therapy injection 0.4 cc weekly Injection day: Friday Lab day: Friday Continue current therapy with testosterone New issue today erectile dysfunction Background of diabetes Progressive difficulty with erections Trial of daily tadalafil with 20 mg on demand Prescriptions provided Hypogonadism: He presents today for further evaluation and followup of his hypogonadism - prior clomid stimulation test T reached 320 - Failed AndroGel - change T to 0.4 cc q week - remains current therapy Initial symptoms include erectile dysfunction Yes decreased libido Yes change in mood/depression Yes The onset of symptoms has been gradual, over the past few years. Erectile status current ZACHERY Score, nocturnal erections occur but are not comparable to sexual stimulation, erections are adequate for penetration. He has been taking narcotics, antidepressants. Laboratory results baseline, April 2016 testosterone, low < 200 - also low DHEA and pregnenolone May 2016 - Stimulation test 320 Nov 2016 - T 179, 07/27 T 100 01/25 T 529, 08/27 T 547 PSA 2.5 Hct 52 02/26 T 632 PSA 2.2 Hct 51, 08/28 T 739 PSA 2.4 Hct 57 - polycythemia, on regular blood donation 10/28 PSA 2.1, T 300 Hct 54 - 04/30 T 111, PSA 2.1, 10/30 T 360 P 2.4 Hct 46, 07/01 T 600 P 1.9 H 51.1 - 01/02 T 670 P 2.2 H 48, 07/02 870 2.2 52 Response to therapy has been improved, energy/wellbeing, alertness, erectile function. Prior therapy includes - SERM - gel - failed to absorp. PFSH Medical History Anxiety Arthritis Back pain Depression Fatty liver GERD (gastroesophageal reflux disease) Hepatitis HTN (hypertension) Opioid dependence Sleep apnea Sleep disturbance Surgical History H/O colonoscopy History of esophagogastroduodenoscopy (EGD) Hx of hemorrhoidectomy Family History Father No problems noted. Mother Hx of colon cancer, stage IV Brother Lesion of liver greater than 1 cm in diameter with history of extrahepatic malignant neoplasm Social History Household Members: Spouse Alcohol intake: former Year quit: Sep Patient Tobacco Use Status: Former Tobacco user Quit Date: Sep 2022 Years Smoked: 30+ Current occupational status: unemployed Review of Systems Const Denies chills and Denies fever(s) Card Reports no additional complaints and Denies syncope Resp Denies cough GI Denies abdominal pain and Denies heartburn Reports as per HPI and Denies change in libido Neuro Denies syncope Psych Denies change in libido Endo Denies change in libido Physical Exam Const General: cooperative, healthy appearing, comfortable and no acute distress Orientation/consciousness: patient oriented x3 HEENT Face and sinus: Yes normal facial exam Mouth: moist mucous membranes Neck Neck: Yes normal visual inspection, Yes full ROM and Yes trachea midline Chest Chest palpation & inspection: normal inspection of the chest Resp Effort & Inspection: normal respiratory effort, able to speak in complete sentences and no respiratory distress GI Inspection: Yes normal to inspection Back/Spine/Pelvis Cervical Spine: normal cervical lordosis Thoracic/Lumbar Spine: thoracic and lumbar spine normal to inspection Skin General skin exam: no rashes or lesions noted Neuro General: patient oriented x3, gait normal, tone normal and moves all extremities Extrem General: Yes normal to inspection and Yes capillary refill normal Assessment & Plan Assessment & Plan (1) Erectile dysfunction associated with type 2 diabetes mellitus: Code(s): E11.69 - Type 2 diabetes mellitus with other specified complication; N52.1 - Erectile dysfunction due to diseases classified elsewhere (2) Hypogonadism in male: Code(s): E29.1 - Testicular hypofunction Plan Medication refill Orders: Orders Prostate Specific Antigen 6 Months E29.1 - Testicular hypofunction Testosterone, Total 6 Months E29.1 - Testicular hypofunction Complete Blood Count no Diff 6 Months E29.1 - Testicular hypofunction Medications: New tadalafil 5 mg PO DAILY 90 tabs 1RF sexual activity 90 days E11.69 - Type 2 diabetes mellitus with other specified complication, N52.1 - Erectile dysf unction due to diseases classified elsewhere tadalafil On demand medication take 60 minutes before intended activity 20 mg PO ONCE PRN 30 tabs 0RF sexual activity 30 days E11.69 - Type 2 diabetes mellitus with other specified complication, N52.1 - Erectile dysfunction due to diseases classified elsewhere Patient Instructions: Imaging studies, laboratory and physical exam results were discussed and reviewed in detail. No major barriers to patient understanding were identified. An opportunity to ask questions regarding the treatment plan was provided. All questions were answered. The patient expressed understanding and agreement with the above treatment plan. The patient is aware they should contact our office by phone for worsening of their current condition or the appearance of new urologic symptoms. Compliance is encouraged with any medications and followup testing that is ordered. It is a privilege to participate in the urologic care of your patient. If you have any questions or concerns regarding treatment for the above conditions, or other urologic issues, please do not hesitate to contact me. The office telephone contact is [phone]. This note is constructed using voice recognition software. While every effort has been made to ensure accuracy engineer technician errors may have been included. Yours sincerely, Dr Isaac Askew MD, DK [facility] - Urology Providers of Expert, Compassionate Care for the Genitourinary System Coding Level of Care Code Est Pt Level 4 (44672) Diagnoses Erectile dysfunction associated with type 2 diabetes mellitus E11.; N52.1 Hypogonadism in male E29.1
== END 2023-07-10 12:13 | disposition home or self-care (01) ==
PROVIDERS: PCP Internal Medicine Geriatric Medicine; Visit Provider Urology
DX: E11.69 Type 2 diabetes mellitus with other specified complication (principal); N52.1 Erectile dysfunction due to diseases classified elsewhere; E29.1 Testicular hypofunction
CPT/HCPCS: 99214

== ENCOUNTER → 2023-07-10 11:46 | Outpatient (BNVA) | payer MEDICAID, SELFPAY | PROVIDERS: PCP Internal Medicine Geriatric Medicine; Visit Provider Urology | DX: E29.1 Testicular hypofunction (principal); E11.69 Type 2 diabetes mellitus with other specified complication; N52.1 Erectile dysfunction due to diseases classified elsewhere | CPT/HCPCS: 99212 ==

== ENCOUNTER → 2023-08-25 13:15 | Outpatient (BNVA) | payer MEDICAID, SELFPAY | PROVIDERS: PCP Internal Medicine Geriatric Medicine; Visit Provider Internal Medicine Gastroenterology ==

== ENCOUNTER 2023-09-02 14:43 | Outpatient (AMB) | payer MEDICAID, SELFPAY ==
--- NOTE | 2023-09-02 14:46 | MHC.OFFVIS ---
Intake Vital Signs 09/02/23 14:47 Height 5 ft 10 in Weight 231 lb BMI 33.1 Intake Visit Reasons: Leg swelling Intake Note: He says hes having leg swelling pain and discoloration on both legs Allergies Penicillins [PENICILLINS] Allergy (Intermediate, Verified 09/02/23 14:48) RASH HPI Leg swelling HPI Details Pleasant 53-year-old gentleman presents for follow-up regarding lower extremity swelling. He had undergone right great saphenous vein ablation on 05/16/2023. He continues to complain of some calf swelling and discomfort and skin discoloration. He noted initial improvement but has continued swelling and was concerned about it. He also notes some swelling on the left lower extremity. He now presents for follow-up. [facility] Medical History Sleep apnea Fatty liver Opioid dependence Sleep disturbance Anxiety Arthritis Back pain GERD (gastroesophageal reflux disease) Hepatitis Depression HTN (hypertension) Surgical History History of esophagogastroduodenoscopy (EGD) H/O colonoscopy Hx of hemorrhoidectomy Family History Father No problems noted. Mother Hx of colon cancer, stage IV Brother Lesion of liver greater than 1 cm in diameter with history of extrahepatic malignant neoplasm Social History Household Members: Spouse Alcohol intake: former Year quit: Nov Patient Tobacco Use Status: Former Tobacco user Quit Date: Sep 2022 Years Smoked: 30+ Current occupational status: unemployed Review of Systems Const Reports as per HPI ENT Reports no additional complaints Card Denies chest pain, Denies chest pain at rest and Denies chest pain with activity Resp Denies chest congestion and Denies cough GI Reports no additional complaints Musc Details: pain over varicosities, aching of lower extremities, swelling, cramping, heaviness and tiredness, itching Denies abnormal gait Skin/Breast Reports pruritus and Denies wounds Neuro Reports no additional complaints and Denies abnormal gait Psych Denies no additional complaints Physical Exam Vital Signs: BMI result Body Mass Index 33.1 Const General: cooperative, healthy appearing and comfortable Orientation/consciousness: oriented to person, oriented to place and oriented to time Neck Carotids: no bruits Chest Chest palpation & inspection: normal inspection of the chest and normal palpation of entire chest wall Resp Effort & Inspection: normal respiratory effort and able to speak in complete sentences Cardio Rate: regular rate Heart sounds: S1 normal heart sound present and S2 normal heart sound present Peripheral pulses: Peripheral pulses 2+ throughout GI Inspection: Yes normal to inspection Skin Other: +2 edema, skin color changes right calf CEAP Classification C4 - skin color changes Ep - Etiology Primary As - superficial veins P - reflux General skin exam: dry skin Neuro General: oriented to person, oriented to place and oriented to time Extrem Right lower extremity: full ROM, normal capillary refill and edema Left lower extremity: full ROM, normal capillary refill and edema Psych Mental Status: mental status grossly normal Assessment & Plan Assessment & Plan (1) Varicose veins of right lower extremity with inflammation: Comment: 05/16/2023 - right great saphenous vein Cyanoacralate ablation Code(s): I83.11 - Varicose veins of right lower extremity with inflammation Plan: In short patient has recurrent swelling. Unclear etiology. I have taken the liberty of ordering repeat venous insufficiency testing to rule that out. Should this persist and not be venous in origin may be more cardiac in origin. It is reported that he has mild cardiomyopathy that is nonischemic. At the current time do recommend use of compression, elevation and exercise. He will follow up with us after repeat venous insufficiency testing. Thank you for allowing us to assist in his care. Orders: Orders US venous duplex LE BI 1 Week I83.11 - Varicose veins of right lower extremity with inflammation Coding Level of Care Code Est Pt Level 4 (96334) Diagnoses Varicose veins of right lower extremity with inflammation I83.11
[2023-09-02 14:47] VITALS: BMI 33.1
== END 2023-09-02 15:14 | disposition home or self-care (01) ==
PROVIDERS: PCP Internal Medicine Geriatric Medicine; Visit Provider Surgery Vascular Surgery
DX: I83.11 Varicose veins of right lower extremity with inflammation (principal)
CPT/HCPCS: 99214

== ENCOUNTER → 2023-09-02 14:43 | Outpatient (BNVA) | payer MEDICAID, SELFPAY | PROVIDERS: PCP Internal Medicine Geriatric Medicine; Visit Provider Surgery Vascular Surgery | DX: I83.11 Varicose veins of right lower extremity with inflammation (principal) | CPT/HCPCS: 99212 ==

== ENCOUNTER 2023-09-15 12:10 | Outpatient (REF) | payer MEDICAID, SELFPAY ==
[2023-09-15 13:58] LABS: Alanine Aminotransferase 32 U/L (0-40); Albumin Level 4.2 g/dL (3.5-5.0); Alkaline Phosphatase 47 U/L (39-117); Anion Gap 15 (12-20); Aspartate Amino Transferase 31 U/L (5-37); Bilirubin Total 1.3 mg/dL (0.0-1.0); Blood Urea Nitrogen 12 mg/dL (9-16); Calcium 9.6 mg/dL (8.4-10.2); Carbon Dioxide 33 mmol/L (22-29); Chloride 93 mmol/L (96-108); Estimated Glomerular Filt Rate > 60; Glucose Random 244 mg/dL (60-115); Potassium 3.5 mmol/L (3.3-5.1); Sodium 137 mmol/L (135-145); Total Protein 8.2 g/dL (6.5-8.0)
[2023-09-15 14:11] LABS: Creatinine Urine 60.69 mg/dL; Microalbum/Creatinine Ratio Ur 390.5 ug/mg cr (<30)
== END 2023-09-15 12:11 | disposition home or self-care (01) ==
LOC: HO.HHCL 12:10
PROVIDERS: Visit Provider Internal Medicine Geriatric Medicine
DX: E11.9 Type 2 diabetes mellitus without complications (principal)
CPT/HCPCS: 36415; 80053; 82043; 82570

== ENCOUNTER 2023-10-13 08:40 | Outpatient (REF) | payer MEDICAID, SELFPAY ==
--- NOTE | ~2023-10-13 | US_ITS ---
EXAMINATION: US LOWER EXTREMITY VENOUS (REFLUX EXAM), BILATERAL CLINICAL INDICATION: Chronic venous insufficiency with lower extremity varicose veins with pain and inflammation. History of right great saphenous vein ablation COMPARISON: Prior ultrasounds including 03/14/2023 and 05/19/2020 TECHNIQUE: Color flow triplex imaging and compression Doppler was performed to evaluate both the deep and the superficial systems bilaterally. To evaluate the superficial system, the examination was performed in the upright position. Color-flow Doppler ultrasound and compression ultrasound were utilized. In addition, maneuvers were utilized to demonstrate reflux. FINDINGS: 1. DEEP VENOUS ULTRASOUND OF THE RIGHT LOWER EXTREMITY: Common Femoral Vein: Compressible, normal respiratory variation and augmented flow. Femoral Vein: Compressible, normal color flow and augmentation. Popliteal Vein: Compressible, normal augmentation. Deep Reflux: There is no evidence of reflux in the deep system in either the common femoral vein or the popliteal vein. There is no evidence of a La's cyst. 2. SUPERFICIAL ULTRASOUND WITH DOPPLER OF RIGHT LOWER EXTREMITY: GREAT SAPHENOUS VEIN: Saphenofemoral Junction: 1.0 cm; Reflux: 0 ms Proximal Thigh: 0.5 cm; occluded Mid Thigh: 0.3 cm; occluded Above Knee: 0.3 cm; occluded At Knee: 0.2 cm; occluded Below Knee: 0.5 cm; Reflux: 2168 ms Mid Calf: 0.3 cm; Reflux: 0 ms Ankle: 0.4 cm; Reflux: 0 ms DUPLICATED MEDIAL GREAT SAPHENOUS VEIN: Diameter: 0.2 mm Reflux: None DUPLICATED LATERAL GREAT SAPHENOUS VEIN: Diameter: None imaged Reflux: NA SMALL SAPHENOUS VEIN: Proximal: 0.4 cm; Reflux: 0 ms Distal: 0.4 cm; Reflux: 0 ms VEIN OF GIACOMINI: Size: NA Reflux: NA PERFORATORS: Location: None imaged Size: NA Reflux: NA VARICOSITIES: Location: Large varicose vein branch arising from the residual great saphenous vein in the proximal calf extending through the proximal and mid calf Size: 0.4 to 0.5 cm Reflux: Ranging from 1500 ms to 1776 ms 3. DEEP VENOUS ULTRASOUND OF THE LEFT LOWER EXTREMITY: Common Femoral Vein: Compressible, normal respiratory variation and augmented flow. Femoral Vein: Compressible, normal color flow and augmentation. Popliteal Vein: Compressible, normal augmentation. Deep Reflux: There is no evidence of reflux in the deep system in either the common femoral vein or the popliteal vein. There is no evidence of a La's cyst. 4. SUPERFICIAL ULTRASOUND WITH DOPPLER OF LEFT LOWER EXTREMITY: GREAT SAPHENOUS VEIN: Saphenofemoral Junction: 0.8 cm; Reflux: 0 ms Proximal Thigh: 0.6 cm; Reflux: 1016 ms Mid Thigh: 0.3 cm; Reflux: 0 ms Above Knee: 0.4 cm; Reflux: 0 ms At Knee: 0.4 cm; Reflux: 848 ms Below Knee: 0.2 cm; Reflux: 0 ms Mid Calf: 0.3 cm; Reflux: 0 ms Ankle: 0.4 cm; Reflux: 0 ms DUPLICATED MEDIAL GREAT SAPHENOUS VEIN: Diameter: None imaged Reflux: NA DUPLICATED LATERAL GREAT SAPHENOUS VEIN: Diameter: 0.5 cm Reflux: None SMALL SAPHENOUS VEIN: Proximal: 0.3 cm; Reflux: 0 ms Distal: 0.3 cm; Reflux: 0 ms VEIN OF GIACOMINI: Size: NA Reflux: NA PERFORATORS: Location: None imaged Size: NA Reflux: NA VARICOSITIES: Location: Varicose vein branch arising from the great saphenous vein in the proximal thigh Size: 0.4 cm Reflux: 1768 ms VARICOSITIES: Location: Varicose vein branch arising from the great saphenous vein at the knee Size: 0.3 cm Reflux: None US/US venous duplex LE BI IMPRESSION: Right: Right great saphenous vein from the proximal thigh to the knee is occluded. Residual patent saphenous vein in the proximal calf demonstrates severe reflux with branching varicose vein as described above Left: Segmental areas of reflux in the left great saphenous vein in the proximal thigh and knee. Branching varicose veins arising from the great saphenous vein at these levels as described above
== END 2023-10-13 08:41 | disposition home or self-care (01) ==
LOC: HO.US 08:40
PROVIDERS: Visit Provider Surgery Vascular Surgery
DX: I83.11 Varicose veins of right lower extremity with inflammation (principal); K42.9 Umbilical hernia without obstruction or gangrene
CPT/HCPCS: 93970; 99202

== ENCOUNTER 2023-10-13 13:17 | Outpatient (AMB) | payer MEDICAID, SELFPAY ==
[2023-10-13 13:23] VITALS: BP 141/75; PULSE 81; BMI 34.2
--- NOTE | 2023-10-13 13:23 | A.OFFVIS_ITS ---
Intake Vital Signs 10/13/23 13:23 Height 5 ft 10 in Weight 238 lb 8.642 oz BMI 34.2 BP 141/75 H Blood Pressure Location Rt brachial Position Sitting Pulse 81 Intake Visit Reasons: umbilical hernia Intake Note: This patient presents for an assessment for an umbilical hernia. Patient c/o; reports bulge, reports discomfort. Environmental Lawyer Required: No Accompanied by: Self / Same As Patient Allergies Penicillins [PENICILLINS] Allergy (Intermediate, Verified 10/13/23 13:30) RASH Medication List - Last Reconciled 10/13/23 by Riki Schroeder MD albuterol sulfate 90 mcg/actuation (ProAir HFA) 2 puffs PO Q4-6H PRN amitriptyline 50 mg PO BEDTIME aspirin 1 tab PO DAILY atorvastatin 20 mg PO DAILY blood sugar diagnostic (FreeStyle Lite Strips) As directed buspirone 15 mg PO BID chlorthalidone 25 mg PO DAILY dulaglutide (Trulicity) mg subcut duloxetine 60 mg PO DAILY fluticasone propionate 50 mcg/actuation 2 sprays intranasal DAILY furosemide 20 mg PO DAILY hydroxyzine pamoate 25 mg PO TID PRN insulin syringe-needle U-100 As directed once a week lancets (FreeStyle Lancets) As directed linaclotide (Linzess) 145 mcg PO DAILY melatonin 3 mg PO BEDTIME metoprolol succinate ER 25 mg PO DAILY polyethylene glycol 3350 17 grams PO DAILY sacubitril-valsartan 24-26 mg (Entresto) 1 tab PO BID 90 days sitagliptin phos-metformin 50-500 mg (Janumet) 1 tab PO sodium,potassium,mag sulfates 17.5-3.13-1.6 gram (Suprep Bowel Prep Kit) DILUTE each bottle with 16oz of water; drink full amount early evening before AND next morning at least 6 hr before procedure; follow w 32 oz. water PO tadalafil 5 mg PO DAILY 90 days tadalafil 20 mg PO ONCE PRN 30 days testosterone cypionate (Depo-Testosterone) 80 mg (0.4 mL) subcut QWEEK 4 weeks HPI umbilical hernia HPI Details 53-year-old male referred for an umbilic al hernia. He says that he has noticed this lump on his umbilicus for about a year and a half now. He also says that he actually was seen by a surgeon last year but he was advised to quit smoking then. He says that the hernia has been increasing in size. He says that this has been starting to bother him and seems to be more prominent with exertion. He otherwise denies GI complaints. He has known diabetes. He says that his blood sugars are well controlled. [facility] Medical History Sleep apnea Fatty liver Opioid dependence Sleep disturbance Anxiety Arthritis Back pain GERD (gastroesophageal reflux disease) Hepatitis Depression HTN (hypertension) Surgical History History of esophagogastroduodenoscopy (EGD) H/O colonoscopy Hx of hemorrhoidectomy Family History Father No problems noted. Mother Hx of colon cancer, stage IV Brother Lesion of liver greater than 1 cm in diameter with history of extrahepatic malignant neoplasm Social History Household Members: Spouse Alcohol intake: former Year quit: Sep Patient Tobacco Use Status: Former Tobacco user Quit Date: Sep 2022 Years Smoked: 30+ Current occupational status: unemployed Review of Systems Const Denies chills and Denies fever(s) Card Denies chest pain, Denies dyspnea and Denies dyspnea on exertion Resp Denies cough, Denies dyspnea and Denies dyspnea on exertion GI Denies hematochezia and Denies change in bowel habits Denies hematuria and Denies difficulty urinating Musc Denies back pain and Denies limited range of motion Neuro Denies focal weakness and Denies convulsions Psych Denies depression and Denies mood swings Physical Exam Vital Signs: Last Vital Signs Pulse 81 10/13/23 13:23 BP 141/75 H 10/13/23 13:23 BMI result Body Mass Index 34.2 Const Other: Appears overweight General: comfortable and no acute distress Orientation/consciousness: patient oriented x3 Neck Neck: Yes no lymphadenopathy Resp Auscultation: clear to auscultation bilaterally Cardio Rhythm: regular rhythm GI Other: Umbilical hernia, about 2.3 cm in diameter, reducible Palpation (GI): Soft to palpation, nontender and no guarding Neuro General: patient oriented x3 Assessment & Plan Assessment & Plan (1) Umbilical hernia: Code(s): K42.9 - Umbilical hernia without obstruction or gangrene Plan: I explained to him the technique of repair with possible mesh placement. I reviewed the risks including but not limited to bleeding, infections, bowel injury, recurrence, postop pain, as well as the benefits and alternatives. He understands and wants to proceed. He also understands what to expect postoperatively. Coding Level of Care Code New Pt Level 3 (45872) Diagnoses Umbilical hernia K42.9
== END 2023-10-13 13:41 | disposition home or self-care (01) ==
PROVIDERS: PCP Internal Medicine Geriatric Medicine; Visit Provider Surgery
DX: K42.9 Umbilical hernia without obstruction or gangrene (principal)
CPT/HCPCS: 99203

== ENCOUNTER 2023-10-20 11:12 | Outpatient (AMB) | payer MEDICAID, SELFPAY ==
--- NOTE | 2023-10-20 11:15 | MHC.OFFVIS ---
Intake Vital Signs 10/20/23 11:16 Height 5 ft 10 in Weight 240 lb 4.862 oz BMI 34.5 BP 128/80 Blood Pressure Location Lt brachial Position Sitting Pulse 76 Intake Visit Reasons: 6 month follow up echo/colonoscopy clearance Intake Note: follow up Packaging Manager Required: No Accompanied by: Self / Same As Patient Allergies Penicillins [PENICILLINS] Allergy (Intermediate, Verified 10/13/23 13:30) RASH Medication List - Last Reconciled 10/20/23 by Luis Daniel Tracy MD albuterol sulfate 90 mcg/actuation (ProAir HFA) 2 puffs PO Q4-6H PRN amitriptyline 50 mg PO BEDTIME aspirin 81 mg PO DAILY atorvastatin 20 mg PO DAILY blood sugar diagnostic (FreeStyle Lite Strips) As directed chlorthalidone 25 mg PO DAILY dulaglutide (Trulicity) mg subcut duloxetine 60 mg PO DAILY fluticasone propionate 50 mcg/actuation 2 sprays intranasal DAILY furosemide 20 mg PO DAILY hydroxyzine pamoate 25 mg PO TID PRN insulin syringe-needle U-100 As directed once a week lancets (FreeStyle Lancets) As directed linaclotide (Linzess) 145 mcg PO DAILY melatonin 3 mg PO BEDTIME PRN metformin 500 mg PO metoprolol succinate ER 25 mg PO DAILY polyethylene glycol 3350 17 grams PO DAILY sacubitril-valsartan 24-26 mg (Entresto) 1 tab PO BID sodium,potassium,mag sulfates 17.5-3.13-1.6 gram (Suprep Bowel Prep Kit) DILUTE each bottle with 16oz of water; drink full amount early evening before AND next morning at least 6 hr before procedure; follow w 32 oz. water PO tadalafil 5 mg PO DAILY 90 days tadalafil 20 mg PO ONCE PRN 30 days testosterone cypionate (Depo-Testosterone) 80 mg (0.4 mL) subcut QWEEK 4 weeks HPI HPI Comments History of Present Illness Details Clive returns for follow-up. To recall, he was initially seen for evaluation possible congestive heart failure. He underwent further workup including echocardiogram, stress test leading to cardiac catheterization. He had reported some shortness of breath in the past but more recently he states he is feeling fine. No angina or shortness of breath or in fact anything cardiac sounding. No other cardiac issues at this time. He states he is going to go for colonoscopy and then hernia surgery. [facility] Medical History Sleep apnea Fatty liver Opioid dependence Sleep disturbance Anxiety Arthritis Back pain GERD (gastroesophageal reflux disease) Hepatitis Depression HTN (hypertension) Surgical History History of esophagogastroduodenoscopy (EGD) H/O colonoscopy Hx of hemorrhoidectomy Family History Father No problems noted. Mother Hx of colon cancer, stage IV Brother Lesion of liver greater than 1 cm in diameter with history of extrahepatic malignant neoplasm Social History Household Members: Spouse Alcohol intake: former Year quit: Nov Patient Tobacco Use Status: Former Tobacco user Quit Date: Sep 2022 Years Smoked: 30+ Current occupational status: unemployed Review of Systems Const Denies weakness ENT Denies dizziness Card Denies chest pain, Denies chest pain with activity, Denies syncope, Denies rapid heart rate, Denies pedal edema, Denies edema, Denies leg edema, Denies lightheadedness, Denies palpitations, Denies dyspnea on exertion and Denies orthopnea Resp Denies cough and Denies dyspnea on exertion GI Denies hematochezia and Denies change in stool character Musc Denies abnormal gait, Denies muscle cramps, Denies muscle weakness, Denies numbness, Denies radiating pain into limb and Denies tingling Neuro Denies abnormal gait, Denies dizziness, Denies syncope, Denies numbness, Denies tingling and Denies weakness Endo Denies palpitations Physical Exam Vital Signs: Last Vital Signs Pulse 76 10/20/23 11:16 BP 128/80 10/20/23 11:16 BMI result Body Mass Index 34.5 Const General: comfortable and no acute distress Orientation/consciousness: patient oriented x3 HEENT Other: Unremarkable Head: Yes normal to inspection Neck Neck: Yes normal visual inspection Chest Chest palpation & inspection: normal inspection of the chest Resp Auscultation: clear to auscultation bilaterally Cardio Palpation: normal PMI Heart sounds: S1 normal heart sound present, S2 normal heart sound present, no gallops, no murmurs and no rubs GI Palpation (GI): Soft to palpation Back/Spine/Pelvis Other: unremarkable Skin General skin exam: no rashes or lesions noted Neuro General: patient oriented x3 Extrem General: Yes normal to inspection Psych Mental Status: mental status grossly normal Office Procedures EKG Details: EKG with sinus rhythm at 76/Min; nonspecific IVCD type pattern, leftward axis and nonspecific ST-T changes; [place] [id number], Complete Assessment & Plan Assessment & Plan (1) Cardiomyopathy: Code(s): I42.9 - Cardiomyopathy, unspecified Qualifiers: Cardiomyopathy type: other Qualified Code(s): I42.8 - Other cardiomyopathies Plan: Cardiac studies reviewed. Echocardiogram with LVEF of 30-35%. Prior to that, 41%. Myocardial perfusion imaging study showed basal to mid inferior wall ischemia with infarction in the basal inferolateral/lateral wall. However, cardiac catheterization only shows minimal irregularities in circumflex but otherwise normal coronary arteries. Hence essentially nonischemic cardiomyopathy. He remains on metoprolol Entresto. On a small dose of diuretic. Euvolemic. (2) HTN (hypertension): Code(s): I10 - Essential (primary) hypertension Qualifiers: Hypertension type: primary hypertension Qualified Code(s): I10 - Essential (primary) hypertension Plan: Stable. (3) Preoperative cardiovascular examination: Code(s): Z01.810 - Encounter for preprocedural cardiovascular examination Plan: May proceed with colonoscopy as well as hernia surgery. Intermediate risk. Orders: Orders CA echo transthoracic complete 6 Months I42.9 - Cardiomyopathy, unspecified Medications: Changed From sacubitril-valsartan 24-26 mg (Entresto) 1 tab PO BID 90 days 180 tabs 3RF To sacubitril-valsartan 24-26 mg (Entresto) 1 tab PO BID Coding Level of Care Code Est Pt Level 4 (42409) Diagnoses Other cardiomyopathy I42.8 Cardiomyopathy type: other Primary hypertension I10 Hypertension type: primary hypertension Preoperative cardiovascular examination Z01.810 CPT Codes EKG - CPT: 52587-[id number], Complete ([id number])
[2023-10-20 11:16] VITALS: BP 128/80; PULSE 76; BMI 34.5
== END 2023-10-20 11:30 | disposition home or self-care (01) ==
PROVIDERS: PCP Internal Medicine Geriatric Medicine; Visit Provider Internal Medicine
DX: I42.8 Other cardiomyopathies (principal); I10 Essential (primary) hypertension; Z01.810 Encounter for preprocedural cardiovascular examination
CPT/HCPCS: 93010; 99214

== ENCOUNTER → 2023-10-20 11:12 | Outpatient (BNVA) | payer MEDICAID, SELFPAY | PROVIDERS: PCP Internal Medicine Geriatric Medicine; Visit Provider Internal Medicine | DX: Z01.810 Encounter for preprocedural cardiovascular examination (principal); I42.8 Other cardiomyopathies; I10 Essential (primary) hypertension | CPT/HCPCS: 93005; 99212 ==

== ENCOUNTER 2023-11-04 14:42 | Outpatient (AMB) | payer MEDICAID, SELFPAY ==
[2023-11-04 14:46] VITALS: BP 118/70; PULSE 84; O2SAT 94; BMI 34.4
--- NOTE | 2023-11-04 14:46 | MHC.OFFVIS ---
Intake Vital Signs 11/04/23 14:46 Height 5 ft 10 in Weight 240 lb BMI 34.4 BP 118/70 Blood Pressure Location Rt brachial Position Sitting Pulse 84 Pulse Source Pulse Oximeter Pulse Oximetry (%) 94 Oxygen Delivery Method Room Air Intake Visit Reasons: Follow 10/13 US Intake Note: Pt presents to the office today for a follow up 10/13 US. Pt states his right leg is worse than the left. Pt states he gets swelling in his right leg and gets numbness and tingling in his right foot. Pt states his right leg has also become discolored. Allergies Penicillins [PENICILLINS] Allergy (Intermediate, Verified 10/13/23 13:30) RASH HPI Follow 10/13 US HPI Details Pleasant 53-year-old gentleman presents for follow-up evaluation regarding venous insufficiency. He actually originally had right GSV ablation on 05/16/2023. He reports that his leg became better for period of time and now he developed a large cluster varicosities on the right calf oddly enough right underneath his big tattoo area. He now presents for follow-up with venous insufficiency testing. [facility] Medical History Atherosclerotic cardiovascular disease Polycythemia, secondary Cardiomyopathy Sleep apnea Fatty liver Opioid dependence Sleep disturbance Anxiety Arthritis Back pain GERD (gastroesophageal reflux disease) Hepatitis Depression HTN (hypertension) Surgical History History of esophagogastroduodenoscopy (EGD) H/O colonoscopy Hx of hemorrhoidectomy Family History Father No problems noted. Mother Hx of colon cancer, stage IV Brother Lesion of liver greater than 1 cm in diameter with history of extrahepatic malignant neoplasm Social History Household Members: Spouse Alcohol intake: former Year quit: Sep Patient Tobacco Use Status: Former Tobacco user Quit Date: Sep 2022 Years Smoked: 30+ Current occupational status: unemployed Review of Systems Const All systems reviewed & are unremarkable except as noted in HPI and below Reports no additional complaints ENT Reports Normal hearing present Card Denies chest pain, Denies chest pain at rest, Denies chest pain with activity and Denies pedal edema Resp Denies cough GI Denies abdominal pain Musc Denies abnormal gait, Denies muscle cramps and Denies radiating pain into limb Skin/Breast Denies skin ulcer and Denies wounds Neuro Reports Normal hearing present and Denies abnormal gait Psych Reports no additional complaints Physical Exam Vital Signs: Last Vital Signs Pulse 84 11/04/23 14:46 BP 118/70 11/04/23 14:46 Pulse Ox 94 11/04/23 14:46 Oxygen Delivery Method Room Air 11/04/23 14:46 BMI result Body Mass Index 34.4 Const General: cooperative, healthy appearing and comfortable Orientation/consciousness: oriented to person, oriented to place and oriented to time HEENT Head: Yes normal to inspection Neck Neck: Yes normal visual inspection Carotids: no bruits Chest Chest palpation & inspection: normal inspection of the chest Resp Effort & Inspection: normal respiratory effort and able to speak in complete sentences Auscultation: clear to auscultation bilaterally, no crackles, no rales, no rhonchi and no wheezes Cardio Rate: regular rate Rhythm: regular rhythm Heart sounds: S1 normal heart sound present and S2 normal heart sound present Bruits: no carotid bruits Peripheral pulses: Peripheral pulses 2+ throughout GI Inspection: Yes normal to inspection Skin Wounds: no wounds Hair: normal Neuro General: oriented to person, oriented to place and oriented to time Cranial nerves: Yes CN's II-XII intact bilaterally and Yes Normal hearing present Cognition (Neuro): normal cognition Motor exam (neuro): 5/5 motor strength present throughout Extrem Other: venous exam: +2 edema, skin color changes, large cluster of varicosities greater than 4 mm in the right calf General: No clubbing, No cyanosis and Yes edema Psych Appearance: grossly normal Mental Status: mental status grossly normal Speech and movement: Normal speech and movement present Results Reviewed Results Reviewed: Brief summary of venous insufficiency testing is as follows: right great saphenous vein: Positive at calf right small saphenous vein: negative right accessory vein: none present left great saphenous vein: Positive left small saphenous vein: negative left accessory vein: none present Please note there is no evidence of any venous aneurysms or significant tortuosity Assessment & Plan Assessment & Plan (1) Varicose veins of right lower extremity with inflammation: Comment: 05/16/2023 - right great saphenous vein Cyanoacralate ablation Code(s): I83.11 - Varicose veins of right lower extremity with inflammation Plan: This patient has varicose veins with inflammation. They continue to be a source of discomfort for the patient. The patient has tried conservative treatment with compression, leg elevation and exercise program for over 3 months time. They have been compliant with all treatment. This has provided minimal relief for the patient. I do not anticipate this course of treatment will alter the underlying etiology. The patient has been scheduled for lower extremity venous treatment inclusive of --- right great saphenous vein Cyanoacralate ablation. Risks, benefits, and complications of this procedure has been discussed in detail with the patient including but not limited to bleeding, infection, and the development of a DVT. The patient has demonstrated a clear understanding and has consented. We will schedule the patient as soon as possible. Thank you for allowing us to participate in this patient's care. If there are any questions or concerns please do not hesitate to contact us. Coding Level of Care Code Est Pt Level 4 (30054) Diagnoses Varicose veins of right lower extremity with inflammation I83.11
== END 2023-11-04 15:15 | disposition home or self-care (01) ==
PROVIDERS: PCP Internal Medicine Geriatric Medicine; Visit Provider Surgery Vascular Surgery
DX: I83.11 Varicose veins of right lower extremity with inflammation (principal)
CPT/HCPCS: 99214

== ENCOUNTER → 2023-11-04 14:42 | Outpatient (BNVA) | payer MEDICAID, SELFPAY | PROVIDERS: PCP Internal Medicine Geriatric Medicine; Visit Provider Surgery Vascular Surgery | DX: I83.11 Varicose veins of right lower extremity with inflammation (principal) | CPT/HCPCS: 99212 ==

== ENCOUNTER 2023-12-26 14:22 | Outpatient (REF) | payer MEDICAID, SELFPAY ==
[2023-12-26 14:47] LABS: Hematocrit 52.9 % (42.0-52.0); Hemoglobin 17.7 g/dl (14.0-18.0); Mean Corpuscular HGB Conc 33.5 g/dl (31.0-36.0); Mean Corpuscular Hemoglobin 26.9 pg (27.0-33.0); Mean Corpuscular Volume 80.4 fL (80.0-98.0); Mean Platelet Volume 10.2 fL (9.4-12.4); Platelet Count 200 X10*3/uL (160-400); Red Blood Count 6.58 X10*6/uL (4.60-5.80); Red Cell Distribution Width 15.4 % (11.0-16.0)
[2023-12-30 01:49] LABS: Testosterone, Total 437 ng/dL (250-1100)
== END 2023-12-26 14:23 | disposition home or self-care (01) ==
LOC: HO.LAB 14:22
PROVIDERS: PCP Internal Medicine Geriatric Medicine; Visit Provider Urology
DX: E29.1 Testicular hypofunction (principal)
CPT/HCPCS: 36415; 84153; 84403; 85027

== ENCOUNTER 2024-01-06 11:51 | Outpatient (AMB) | payer MEDICAID, SELFPAY ==
--- NOTE | 2024-01-06 11:52 | MHC.OFFVIS ---
Intake Intake Visit Reasons: 6M PSA/TEST/CBC(set)Confirmed Intake Note: Patient is Present for Telephone Follow Up labs Urology Med: Testosterone, Tadalafil Antibiotic Allergy: Penicillins Blood Thinner: None Allergies Penicillins [PENICILLINS] Allergy (Intermediate, Verified 10/13/23 13:30) RASH HPI HPI Comments History of Present Illness Details Clive is a pleasant male. He is a patient of Dr Wright. He is seen for the following urologic conditions - hypogonadism - erectile dysfunction setting of diabetes Telemedicine Evaluation 15 min Consultation [employer] [place] Video attempted Testosterone follow-up Review of use of daily tadalafil 20 mg on demand Has been successful Lab work in range - T 440, P 2.4, 52.9 Current therapy injection 0.4 cc weekly Injection day: Friday Lab day: Friday Continue current therapy with testosterone Hypogonadism: He presents today for further evaluation and followup of his hypogonadism - prior clomid stimulation test T reached 320 - Failed AndroGel - change T to 0.4 cc q week - remains current therapy Initial symptoms include erectile dysfunction Yes decreased libido Yes change in mood/depression Yes The onset of symptoms has been gradual, over the past few years. Erectile status current ZACHERY Score, nocturnal erections occur but are not comparable to sexual stimulation, erections are adequate for penetration. He has been taking narcotics, antidepressants, diabetes Laboratory results baseline, April 2016 testosterone, low < 200 - also low DHEA and pregnenolone May 2016 - Stimulation test 320 Nov 2016 - T 179, 07/27 T 100 01/25 T 529, 08/27 T 547 PSA 2.5 Hct 52 02/26 T 632 PSA 2.2 Hct 51, 08/28 T 739 PSA 2.4 Hct 57 - polycythemia, on regular blood donation 10/28 PSA 2.1, T 300 Hct 54 - 04/30 T 111, PSA 2.1, 10/30 T 360 P 2.4 Hct 46, 07/01 T 600 P 1.9 H 51.1, 01/03 T 440, P 2.4, 52.9 - 01/02 T 670 P 2.2 H 48, 07/02 870 2.2 52 Response to therapy has been improved, energy/wellbeing, alertness, erectile function. Prior therapy includes - SERM - gel - failed to absorp. [facility] Medical History (Updated 11/18/23 @ 09:38 by Sujata Zamora RN) Diabetes Abdominal hernia Hepatitis C Bipolar 1 disorder Elevated cholesterol Myocardial infarction Atherosclerotic cardiovascular disease Polycythemia, secondary Cardiomyopathy Sleep apnea Fatty liver Opioid dependence Sleep disturbance Anxiety Arthritis Back pain GERD (gastroesophageal reflux disease) Hepatitis Depression HTN (hypertension) Surgical History History of esophagogastroduodenoscopy (EGD) H/O colonoscopy Hx of hemorrhoidectomy Family History Father No problems noted. Mother Hx of colon cancer, stage IV Brother Lesion of liver greater than 1 cm in diameter with history of extrahepatic malignant neoplasm Social History Household Members: Spouse Are you a primary director medicare sales to a significant other at home: No Do you presently have visiting nurse or other home services: No Alcohol intake: former Year quit: Nov Patient Tobacco Use Status: Former Tobacco user Quit Date: Sep 2022 Years Smoked: 30+ Current occupational status: unemployed Review of Systems Const All systems reviewed & are unremarkable except as noted in HPI and below Reports no additional complaints Resp Reports no additional complaints GI Reports no additional complaints Reports as per HPI Musc Reports no additional complaints Physical Exam Telemedicine evaluation Appropriate responses Regular breathing rate and rhythm HEENT Head: Yes normal to inspection Ears: hearing grossly normal bilaterally Eyes General: appearance normal, both eyes and all related structures Neck Neck: Yes normal visual inspection Chest Chest palpation & inspection: normal inspection of the chest Resp Effort & Inspection: normal respiratory effort and able to speak in complete sentences Assessment & Plan Assessment & Plan (1) Erectile dysfunction associated with type 2 diabetes mellitus: Code(s): E11.69 - Type 2 diabetes mellitus with other specified complication; N52.1 - Erectile dysfunction due to diseases classified elsewhere (2) Hypogonadism in male: Code(s): E29.1 - Testicular hypofunction Plan Six-month follow-up Orders: Orders Testosterone, Total 6 Months E29.1 - Testicular hypofunction Prostate Specific Antigen 6 Months E29.1 - Testicular hypofunction Complete Blood Count no Diff 6 Months E29.1 - Testicular hypofunction Medications: New syringe (disposable) (BD Luer-Lucie Syringe) Testosterone injection weekly 30 ea 0RF E29.1 - Testicular hypofunction, E34.9 - Endocrine disorder, unspecified needle (disp) 18 G (BD Regular Bevel [place]) To draw up medication 30 ea 0RF E29.1 - Testicular hypofunction needle (disp) 22 G For testosterone injection weekly 30 ea 0RF E29.1 - Testicular hypofunction, E34.9 - Endocrine disorder, unspecified Refilled tadalafil 5 mg PO DAILY 90 tabs 1RF sexual activity 90 days E11.69 - Type 2 diabetes mellitus with other specified complication, N52.1 - Erectile dysfunction due to diseases classified elsewhere testosterone cypionate (Depo-Testosterone) single use vials- use 0.4 mls from one vial per week, then discard the rest 80 mg (0.4 mL) subcut QWEEK 4 mL 5RF 4 weeks E29.1 - Testicular hypofunction, [id number] tadalafil On demand medication take 60 minutes before intended activity, not to exceed one daily dose 20 mg PO ONCE PRN 30 tabs 5RF sexual activity 30 days E11.69 - Type 2 diabetes mellitus with other specified complication, N52.1 - Erectile dysfunction due to diseases classified elsewhere Patient Instructions: Imaging studies, laboratory and physical exam results were discussed and reviewed in detail. No major barriers to patient understanding were identified. An opportunity to ask questions regarding the treatment plan was provided. All questions were answered. The patient expressed understanding and agreement with the above treatment plan. The patient is aware they should contact our office by phone for worsening of their current condition or the appearance of new urologic symptoms. Compliance is encouraged with any medications and followup testing that is ordered. It is a privilege to participate in the urologic care of your patient. If you have any questions or concerns regarding treatment for the above conditions, or other urologic issues, please do not hesitate to contact me. The office telephone contact is [phone]. This note is constructed using voice recognition software. While every effort has been made to ensure accuracy black top paver operator errors may have been included. Yours sincerely, Dr Isaac Askew MD, DK [facility] - Urology Providers of Expert, Compassionate Care for the Genitourinary System Telehealth Telehealth Location of provider rendering services: practice address Location of patient: address on file Patient Identification confirmed using: Name, : Yes Telehealth method: video Patient verbally consented to treatment: Yes Patient verbally consented to billing insurance company: Yes Patient informed of any privacy concerns related to visit: Yes Coding Level of Care Code Tele Est Pt Level 3 (40863) Diagnoses Erectile dysfunction associated with type 2 diabetes mellitus E11.69; N52.1 Hypogonadism in male E29.1
== END 2024-01-06 12:46 | disposition home or self-care (01) ==
LOC: HO.HUSH 11:52
PROVIDERS: PCP Internal Medicine Geriatric Medicine; Visit Provider Urology
DX: E11.69 Type 2 diabetes mellitus with other specified complication (principal); N52.1 Erectile dysfunction due to diseases classified elsewhere; E29.1 Testicular hypofunction
CPT/HCPCS: 99213

== ENCOUNTER → 2024-01-06 11:51 | Outpatient (BNVA) | payer MEDICAID, SELFPAY | PROVIDERS: PCP Internal Medicine Geriatric Medicine; Visit Provider Urology ==

== ENCOUNTER 2024-03-11 11:02 | Outpatient (REF) | payer MEDICAID, SELFPAY ==
[2024-03-11 11:34] LABS: MANUAL DIFF FLAG NO
[2024-03-11 11:38] LABS: Basophils Absolute Auto 0.1 X10*3/uL (0.0-0.2); Eosinophils Absolute Auto 0.2 X10*3/uL (0.0-0.4); Eosinophils Percent Auto 2.4 % (0-4); Imm Gran Abs Auto 0.03 X10*3/uL (0.00-0.03); Imm Gran Pct Auto 0.4 % (0.0-0.4); Lymphocytes Absolute Auto 1.6 X10*3/uL (1.2-4.9); Lymphocytes Percent Auto 20.1 % (20-40); Mean Corpuscular HGB Conc 33.2 g/dl (31.0-36.0); Mean Corpuscular Hemoglobin 27.1 pg (27.0-33.0); Mean Corpuscular Volume 81.7 fL (80.0-98.0); Mean Platelet Volume 10.1 fL (9.4-12.4); Monocytes Absolute Auto 0.6 X10*3/uL (0.1-1.2); Monocytes Percent Auto 7.9 % (2-11); Neutrophils Absolute Auto 5.3 x10*3/uL (2.0-8.3); Neutrophils Percent Auto 68.2 % (45-73); Platelet Count 223 X10*3/uL (160-400); Red Blood Count 7.01 X10*6/uL (4.60-5.80); Red Cell Distribution Width 16.1 % (11.0-16.0); White Blood Count 7.8 X10*3/uL (4.8-10.8)
[2024-03-11 11:39] LABS: Hematocrit 57.3 % (42.0-52.0)
[2024-03-11 12:35] LABS: Alanine Aminotransferase 40 U/L (0-40); Albumin Level 4.5 g/dL (3.5-5.0); Alkaline Phosphatase 56 U/L (39-117); Anion Gap 13 (12-20); Aspartate Amino Transferase 31 U/L (5-37); Bilirubin Total 1.9 mg/dL (0.0-1.0); Blood Urea Nitrogen 18 mg/dL (9-16); Calcium 10.5 mg/dL (8.4-10.2); Carbon Dioxide 37 mmol/L (22-29); Chloride 92 mmol/L (96-108); Estimated Glomerular Filt Rate 59; Glucose Random 160 mg/dL (60-115); Potassium 3.2 mmol/L (3.3-5.1); Sodium 139 mmol/L (135-145); Total Protein 8.8 g/dL (6.5-8.0)
== END 2024-03-11 11:03 | disposition home or self-care (01) ==
LOC: HO.HHCL 11:02
PROVIDERS: Visit Provider Internal Medicine Geriatric Medicine
DX: Z01.818 Encounter for other preprocedural examination (principal); K74.00 Hepatic fibrosis, unspecified; E11.9 Type 2 diabetes mellitus without complications
CPT/HCPCS: 36415; 80053; 85025

== ENCOUNTER → 2024-03-26 11:00 | Outpatient (BNV) | payer MEDICAID, SELFPAY | PROVIDERS: PCP Internal Medicine Geriatric Medicine; Referring Provider Internal Medicine Geriatric Medicine; Visit Provider Internal Medicine | DX: D75.1 Secondary polycythemia (principal) | CPT/HCPCS: 99204 ==

== ENCOUNTER → 2024-04-13 09:08 | Outpatient (REF) | payer MEDICAID, SELFPAY ==
--- NOTE | 2024-04-13 09:14 | CA_ITS ---
Transthoracic Echocardiogram Patient (Last, First, Middle): Renny León, Gender: Male Date of : 1970 Age: 54 Procedure Date: 04/13/2024 Procedure Type: Transthoracic Echocardiogram Location: OP Height: 177.8 cm Weight: 90.72 kg BSA: 2.09 m2 Heart Rate: bpm BP: 112 / 66 mmHg Flame Cutting Supervisor: JAVIER Referring MD: Luis Daniel Tracy MD Card Hand: Blu Fuentes MD Symptoms: I42.9 - Cardiomyopathy, unspecified Study Quality: Fair, contrast ECG Rhythm: Sinus Conclusions: - 1. Moderately reduced LV ejection fraction of 35-40% with impaired relaxation filling pattern 2. Poor with utilization of cardiac valves with normal cardiac valvular Doppler 3. Upper limits of normal ascending aortic size Findings Procedure Information Contrast agent, definity, is being given per protocol without apparent complications. Left Ventricle The left ventricular systolic function is moderately decreased. The visually estimated ejection fraction is between 35-40%. There is moderate global hypokinesis. Spectral Doppler is indicative of an impaired relaxation filling pattern. E/E prime ratio is between 8 and 15 consistent with indeterminate filling pressures. Wall Motion Rest Echo Findings The mid inferior and mid inferoseptal segments are hypokinetic. The basal inferior, basal inferoseptal, and basal inferolateral segments are akinetic. Right Ventricle Normal right ventricular cavity size and systolic function. Atria The left atrium is likely dilated. Interatrial shunt cannot be excluded. The right atrium is normal in size. Aortic Valve The aortic valve was not well visualized. There is no aortic valve stenosis. There is no aortic valve regurgitation. Mitral Valve The mitral valve was not well visualized. There is trace mitral valve regurgitation. There is no mitral valve stenosis. Pulmonic Valve The pulmonic valve was not well visualized. Tricuspid Valve The tricuspid valve was not well visualized. Tricuspid regurgitation envelope is inadequate for calculation of right ventricular systolic pressure. Normal right atrial pressure. Great Vessels The pulmonary artery was not well visualized. Small plaque is seen in the sino tubular ridge. Venous The inferior vena cava is normal in size and collapses greater than 50% with inspiration. Pericardium/Pleural There is no evidence of pericardial effusion. Prior Study Comparison Changes noted compared to prior study dated: 05/07/2023. LV systolic function is marginally improved Measurements 2D Linear Measurements RVIDd: 4.17 IVSd: 1.14 0.6-0.9/0.6-1.0 cm LVIDd: 5.73 3.9-5.3/4.2-5.9 cm LVIDd Index: 2.74 2.4-3.2/2.2-3.1 cm/m2 LVIDs: 4.79 2.0-3.6 cm LVPWd: 1.08 0.7-1.1 cm LA Diam: 3.70 2.7-3.8/3.0-4.0 cm LAIDs Index: 1.77 1.5-2.3 cm/m2 LV Mass: 326.90 67-162/88-224 g LV Mass Index: 156.41 43-95/49-115 g/m2 LVOT Diam: 2.30 3.0+(-)1.3 cm 2D Volumes LA ESV A/L: 31.40 22-52/18-58 ML/M2 RA ESV A/L: 33.80 19-21 ML/M2 2D Systolic Function EF Teich: 34.00 >55% EF 4C: 35.30 >55% EF 2C: 42.80 >55% EF BiP: 36.80 >55% Mitral Valve MV Pk E: 0.61 MV PK A: 0.85 MV Decel Time: 232.00 E/A: 0.70 E'Lateral: 6.74 E'Medial: 5.44 E/E' Med: 11.20 E/E' Lat: 9.00 PHT: 68.00 MVA PHT: 3.24 Decel [place]: 2.62 Aortic Valve AoV Pk Onur: 1.47 AoV Mn Onur: 1.03 AoV VTI: 0.31 AoV Pk Grad: 9.00 Aov Mn Grad: 5.00 ISAC Cont.VTI: 2.13 LVOT LVOT Pk Onur: 0.81 LVOT Mn Onur: 0.57 LVOT VTI: 0.16 LVOT Pk Grad: 3.00 LVOT Mn Grad: 1.00 LVOT Diam: 2.30 LVOT Area: 4.15 Diastolic Function MV Pk E: 0.61 MV Pk A: 0.85 E/A: 0.70 E'Medial: 5.44 E/E' Med: 11.20 E' Laterial: 6.74 E/E' Lat: 9.00 IVC Diam Insp: 0.34 IVC Diam Exp: 1.63 Right Ventricle TAPSE (mm): 2.49 TVS' Onur: 15.30 Tricuspid Valve RA Press: 3.00 IVC Diam Exp: 1.63 IVC Diam Insp: 0.34 Great Vessels Aorta Sinus of Valsalva: 3.50 2.0-3.[address] [place]: 2.97 1.7-3.4 cm Ao Asc: 3.50 2.1-3.4 cm Updated in Other Vendor System with Status of Final Blu Fuentes MD electronically signed on 04/14/2024 3:56:04 PM with status of Final
== END ==
LOC: HO.CARD 09:08
PROVIDERS: PCP Internal Medicine Geriatric Medicine; Visit Provider Internal Medicine
DX: I42.9 Cardiomyopathy, unspecified (principal)
CPT/HCPCS: 93306; Q9957

== ENCOUNTER → 2024-04-13 09:14 | Outpatient (BNV) | payer MEDICAID, SELFPAY | PROVIDERS: PCP Internal Medicine Geriatric Medicine; Visit Provider Internal Medicine Cardiovascular Disease | DX: I42.9 Cardiomyopathy, unspecified (principal) | CPT/HCPCS: 93306 ==

== ENCOUNTER 2024-04-20 13:41 | Outpatient (AMB) | payer MEDICAID, SELFPAY ==
--- NOTE | 2024-04-20 13:42 | A.OFFVIS_ITS ---
Intake Visit Reasons: Medication Review Intake Note: Patient is Present for Telephone Follow Up Medication Review Urology Med: Tadalafil (Insurance is not covering Xyosted) Antibiotic Allergy:Penicillins Blood Thinner:None Allergies Penicillins [PENICILLINS] Allergy (Intermediate, Verified 03/26/24 11:17) RASH Medication List - Last Reconciled 04/20/24 by Isaac Askew MD albuterol sulfate 90 mcg/actuation (ProAir HFA) 2 puffs PO Q4-6H PRN amitriptyline 50 mg PO BEDTIME atorvastatin 20 mg PO DAILY blood sugar diagnostic (FreeStyle Lite Strips) As directed chlorthalidone 25 mg PO DAILY dulaglutide (Trulicity) 1.5 mg subcut QWEEK duloxetine 60 mg PO DAILY fluticasone propionate 50 mcg/actuation 2 sprays intranasal DAILY PRN furosemide 20 mg PO DAILY hydroxyzine pamoate 25 mg PO TID PRN insulin syringe-needle U-100 As directed once a week lancets (FreeStyle Lancets) As directed linaclotide (Linzess) 145 mcg PO DAILY PRN melatonin 3 mg PO BEDTIME PRN metformin 500 mg PO TID metoprolol succinate ER 25 mg PO DAILY polyethylene glycol 3350 17 grams PO DAILY PRN sacubitril-valsartan 24-26 mg (Entresto) 1 tab PO BID tadalafil 5 mg PO DAILY 90 days tadalafil 20 mg PO ONCE PRN 30 days testosterone enanthate (Xyosted) 75 mg (0.5 mL) subcut QWEEK 4 weeks HPI Comments Details: Clive is a pleasant male. He is a patient of Dr Wright. He is seen for the following urologic conditions - hypogonadism - erectile dysfunction setting of diabetes Telemedicine Evaluation 15 min Consultation [employer] [place] Video attempted Testosterone follow-up Review of use of daily tadalafil 20 mg on demand Has been successful Lab work in range - T 440, P 2.4, 52.9 Current therapy injection 0.4 cc weekly Injection day: Friday Lab day: Friday Continue current therapy with testosterone Hypogonadism: He presents today for further evaluation and followup of his hypogonadism - prior clomid stimulation test T reached 320 - Failed AndroGel - change T to 0.4 cc q week - remains current therapy Initial symptoms include erectile dysfunction Yes decreased libido Yes change in mood/depression Yes The onset of symptoms has been gradual, over the past few years. Erectile status current ZACHERY Score, nocturnal erections occur but are not comparable to sexual stimulation, erections are adequate for penetration. He has been taking narcotics, antidepressants, diabetes Laboratory results baseline, April 2016 testosterone, low < 200 - also low DHEA and pregnenolone May 2016 - Stimulation test 320 Nov 2016 - T 179, 07/27 T 100 01/25 T 529, 08/27 T 547 PSA 2.5 Hct 52 02/26 T 632 PSA 2.2 Hct 51, 08/28 T 739 PSA 2.4 Hct 57 - polycythemia, on regular blood donation 10/28 PSA 2.1, T 300 Hct 54 - 04/30 T 111, PSA 2.1, 10/30 T 360 P 2.4 Hct 46, 07/01 T 600 P 1.9 H 51.1, 01/03 T 440, P 2.4, 52.9 - 01/02 T 670 P 2.2 H 48, 07/02 870 2.2 52 Response to therapy has been improved, energy/wellbeing, alertness, erectile function. Prior therapy includes - SERM - gel - failed to absorp. [facility] Medical History (Updated 03/26/24 @ 14:18 by Tatyana Boyer MD) Diabetes Abdominal hernia Hepatitis C Bipolar 1 disorder Elevated cholesterol Myocardial infarction Atherosclerotic cardiovascular disease Polycythemia, secondary Cardiomyopathy Sleep apnea Fatty liver Opioid dependence Sleep disturbance Anxiety Arthritis Back pain GERD (gastroesophageal reflux disease) Hepatitis Depression HTN (hypertension) Surgical History (Updated 03/26/24 @ 14:18 by Tatyana Boyer MD) History of esophagogastroduodenoscopy (EGD) H/O colonoscopy Hx of hemorrhoidectomy Family History Father No problems noted. Mother Hx of colon cancer, stage IV Brother Lesion of liver greater than 1 cm in diameter with history of extrahepatic malignant neoplasm Social History (Updated 03/26/24 @ 11:18 by Gaurang Baldwin) Household Members: Spouse Are you a primary lead care manager to a significant other at home: No Do you presently have visiting nurse or other home services: No Alcohol intake: former Year quit: Nov Patient Tobacco Use Status: Former Tobacco user Years Smoked: 30+ Current occupational status: unemployed Review of Systems Const All systems reviewed & are unremarkable except as noted in HPI and below Reports no additional complaints Resp Reports no additional complaints GI Reports no additional complaints Reports as per HPI Musc Reports no additional complaints Physical Exam Telemedicine evaluation Appropriate responses Regular breathing rate and rhythm HEENT Head: Yes normal to inspection Ears: hearing grossly normal bilaterally Eyes General: appearance normal, both eyes and all related structures Neck Neck: Yes normal visual inspection Chest Chest palpation & inspection: normal inspection of the chest Resp Effort & Inspection: normal respiratory effort and able to speak in complete sentences Telehealth Telehealth Location of provider rendering services: practice address Location of patient: address on file Patient Identification confirmed using: Name, : Yes Telehealth method: video Patient verbally consented to treatment: Yes Patient verbally consented to billing insurance company: Yes Patient informed of any privacy concerns related to visit: Yes Assessment & Plan Assessment & Plan (1) Hypogonadism in male: Code(s): E29.1 - Testicular hypofunction Category: Medical Plan Six-month follow-up testosterone Medications: New needle (disp) 18 G (BD Regular [place]) As directed - draw up testosterone 30 ea 0RF E29.1 - Testicular hypofunction insulin syringe-needle U-100 As directed 30 ea 0RF E29.1 - Testicular hypofunction testosterone cypionate (Depo-Testosterone) 80 mg (0.4 mL) subcut QWEEK 4 weeks 2 mL 5RF E29.1 - Testicular hypofunction, [id number] Discontinued testosterone enanthate (Xyosted) Discontinued Reason: Patient no longer taking 75 mg (0.5 mL) subcut QWEEK 4 weeks 2 mL 5RF E29.1 - Testicular hypofunction Patient Instructions: Imaging studies, laboratory and physical exam results were discussed and reviewed in detail. No major barriers to patient understanding were identified. An opportunity to ask questions regarding the treatment plan was provided. All questions were answered. The patient expressed understanding and agreement with the above treatment plan. The patient is aware they should contact our office by phone for worsening of their current condition or the appearance of new urologic symptoms. Compliance is encouraged with any medications and followup testing that is ordered. It is a privilege to participate in the urologic care of your patient. If you have any questions or concerns regarding treatment for the above conditions, or other urologic issues, please do not hesitate to contact me. The office telephone contact is [phone]. This note is constructed using voice recognition software. While every effort has been made to ensure accuracy medical billing representative errors may have been included. Yours sincerely, Dr Isaac Askew MD, DK [facility] - Urology Providers of Expert, Compassionate Care for the Genitourinary System Coding Level of Care Code Tele Est Pt Level 3 (82575) Diagnoses Hypogonadism in male E29.1
== END 2024-04-20 14:27 | disposition home or self-care (01) ==
LOC: HO.HUSH 13:41
PROVIDERS: PCP Internal Medicine Geriatric Medicine; Visit Provider Urology
DX: E29.1 Testicular hypofunction (principal)
CPT/HCPCS: 99213

== ENCOUNTER → 2024-04-20 13:41 | Outpatient (BNVA) | payer MEDICAID, SELFPAY | PROVIDERS: PCP Internal Medicine Geriatric Medicine; Visit Provider Urology ==

== ENCOUNTER 2024-06-28 12:22 | Outpatient (REF) | payer MEDICAID, SELFPAY ==
[2024-06-28 13:41] LABS: Alanine Aminotransferase 24 U/L (0-40); Albumin Level 4.2 g/dL (3.5-5.0); Alkaline Phosphatase 71 U/L (39-117); Anion Gap 12 (12-20); Aspartate Amino Transferase 20 U/L (5-37); Bilirubin Total 0.9 mg/dL (0.0-1.0); Blood Urea Nitrogen 17 mg/dL (9-16); Calcium 10.1 mg/dL (8.4-10.2); Carbon Dioxide 33 mmol/L (22-29); Chloride 95 mmol/L (96-108); Estimated Glomerular Filt Rate > 60; Glucose Random 307 mg/dL (60-115); Potassium 3.7 mmol/L (3.3-5.1); Sodium 136 mmol/L (135-145); Total Protein 8.1 g/dL (6.5-8.0)
== END 2024-06-28 12:23 | disposition home or self-care (01) ==
LOC: HO.HHCL 12:22
PROVIDERS: Visit Provider Internal Medicine Geriatric Medicine
DX: E11.9 Type 2 diabetes mellitus without complications (principal)
CPT/HCPCS: 36415; 80053

== ENCOUNTER 2024-09-02 12:49 | Outpatient (REF) | payer MEDICAID, SELFPAY ==
[2024-09-02 14:46] LABS: Creatinine Urine 131.09 mg/dL; Microalbum/Creatinine Ratio Ur 259.3 ug/mg cr (<30)
[2024-09-02 15:05] LABS: Anion Gap 13 (12-20); Blood Urea Nitrogen 17 mg/dL (9-16); Calcium 9.8 mg/dL (8.4-10.2); Carbon Dioxide 35 mmol/L (22-29); Chloride 94 mmol/L (96-108); Estimated Glomerular Filt Rate > 60; Glucose Random 166 mg/dL (60-115); Potassium 2.9 mmol/L (3.3-5.1); Sodium 139 mmol/L (135-145)
== END 2024-09-02 12:50 | disposition home or self-care (01) ==
LOC: HO.HHCL 12:49
PROVIDERS: Visit Provider Internal Medicine Geriatric Medicine
DX: E11.9 Type 2 diabetes mellitus without complications (principal)
CPT/HCPCS: 36415; 80048; 82043; 82570

== ENCOUNTER 2024-10-18 12:41 | Outpatient (REF) | payer MEDICAID, SELFPAY ==
[2024-10-18 13:38] LABS: Hematocrit 50.8 % (42.0-52.0); Mean Corpuscular HGB Conc 33.5 g/dl (31.0-36.0); Mean Corpuscular Hemoglobin 26.9 pg (27.0-33.0); Mean Corpuscular Volume 80.4 fL (80.0-98.0); Platelet Count 228 X10*3/uL (160-400); Red Blood Count 6.32 X10*6/uL (4.60-5.80); Red Cell Distribution Width 13.6 % (11.0-16.0); White Blood Count 8.6 X10*3/uL (4.8-10.8)
[2024-10-18 14:03] LABS: Anion Gap 13 (12-20); Blood Urea Nitrogen 17 mg/dL (9-16); Calcium 10.4 mg/dL (8.4-10.2); Carbon Dioxide 36 mmol/L (22-29); Chloride 94 mmol/L (96-108); Estimated Glomerular Filt Rate > 60; Glucose Random 143 mg/dL (60-115); Potassium 3.8 mmol/L (3.3-5.1); Sodium 139 mmol/L (135-145)
[2024-10-18 14:30] LABS: Prostate Specific Antigen 2.47 ng/mL (<0.05-4.0)
[2024-10-22 17:48] LABS: Testosterone, Total 306 ng/dL (250-1100)
== END 2024-10-18 12:42 | disposition home or self-care (01) ==
LOC: HO.LAB 12:41
PROVIDERS: PCP Internal Medicine Geriatric Medicine; Visit Provider Urology
DX: E29.1 Testicular hypofunction (principal); E87.6 Hypokalemia
CPT/HCPCS: 36415; 80048; 84153; 84403; 85027

== ENCOUNTER 2024-10-22 11:05 | Outpatient (AMB) | payer MEDICAID, SELFPAY ==
--- NOTE | 2024-10-22 12:10 | MHC.OFFVIS ---
Intake Visit Reasons: 6m/labs Intake Note: Patient is present for 6 months follow up labs Urology Med: Antibiotic Allergy: Penicillins Blood Thinner: None LABS: Patient Symptoms: Clinical Quality Analyst Required: No Accompanied by: Self / Same As Patient Allergies Penicillins [PENICILLINS] Allergy (Intermediate, Verified 10/22/24 12:18) RASH HPI Comments Details: Clive is a pleasant male. He is a patient of Dr Wright. He is seen for the following urologic conditions - hypogonadism - erectile dysfunction setting of diabetes Testosterone follow-up - T pending, PSA 2.4, hematocrit 50.8 Continue current protocol Preference for insulin syringe with 25 needle 5/8 inch Successful use of daily tadalafil plus 20 mg on demand Lab work in range - T 440, P 2.4, 52.9 Current therapy injection 0.4 cc weekly Injection day: Friday Lab day: Friday Continue current therapy with testosterone Six-month follow-up tele Hypogonadism: He presents today for further evaluation and followup of his hypogonadism - prior clomid stimulation test T reached 320 - Failed AndroGel - change T to 0.4 cc q week - remains current therapy Initial symptoms include erectile dysfunction Yes decreased libido Yes change in mood/depression Yes The onset of symptoms has been gradual, over the past few years. Erectile status current ZACHERY Score, nocturnal erections occur but are not comparable to sexual stimulation, erections are adequate for penetration. He has been taking narcotics, antidepressants, diabetes Laboratory results baseline, April 2016 testosterone, low < 200 - also low DHEA and pregnenolone May 2016 - Stimulation test 320 Nov 2016 - T 179, 07/27 T 100 01/25 T 529, 08/27 T 547 PSA 2.5 Hct 52 02/26 T 632 PSA 2.2 Hct 51, 08/28 T 739 PSA 2.4 Hct 57 - polycythemia, on regular blood donation 10/28 PSA 2.1, T 300 Hct 54 - 04/30 T 111, PSA 2.1, 10/30 T 360 P 2.4 Hct 46, 07/01 T 600 P 1.9 H 51.1, 01/03 T 440, P 2.4, 52.9 - 01/02 T 670 P 2.2 H 48, 07/02 870 2.2 52 Response to therapy has been improved, energy/wellbeing, alertness, erectile function. Prior therapy includes - SERM - gel - failed to absorp. [facility] Medical History (Updated 03/26/24 @ 14:18 by Tatyana Boyer MD) Diabetes Abdominal hernia Hepatitis C Bipolar 1 disorder Elevated cholesterol Myocardial infarction Atherosclerotic cardiovascular disease Polycythemia, secondary Cardiomyopathy Sleep apnea Fatty liver Opioid dependence Sleep disturbance Anxiety Arthritis Back pain GERD (gastroesophageal reflux disease) Hepatitis Depression HTN (hypertension) Surgical History (Updated 03/26/24 @ 14:18 by Tatyana Boyer MD) History of esophagogastroduodenoscopy (EGD) H/O colonoscopy Hx of hemorrhoidectomy Family History Father No problems noted. Mother Hx of colon cancer, stage IV Brother Lesion of liver greater than 1 cm in diameter with history of extrahepatic malignant neoplasm Social History (Updated 03/26/24 @ 11:18 by Gaurang Baldwin) Household Members: Spouse Are you a primary critical care cns to a significant other at home: No Do you presently have visiting nurse or other home services: No Alcohol intake: former Year quit: Nov Patient Tobacco Use Status: Former Tobacco user Years Smoked: 30+ Current occupational status: unemployed Review of Systems Const Denies chills and Denies fever(s) Card Reports no additional complaints and Denies syncope Resp Denies cough GI Denies abdominal pain and Denies heartburn Reports as per HPI and Denies change in libido Neuro Denies syncope Psych Denies change in libido Endo Denies change in libido Physical Exam Const General: cooperative, healthy appearing, comfortable and no acute distress Orientation/consciousness: patient oriented x3 HEENT Face and sinus: Yes normal facial exam Mouth: moist mucous membranes Neck Neck: Yes normal visual inspection, Yes full ROM and Yes trachea midline Chest Chest palpation & inspection: normal inspection of the chest Resp Effort & Inspection: normal respiratory effort, able to speak in complete sentences and no respiratory distress GI Inspection: Yes normal to inspection Back/Spine/Pelvis Cervical Spine: normal cervical lordosis Thoracic/Lumbar Spine: thoracic and lumbar spine normal to inspection Skin General skin exam: no rashes or lesions noted Neuro General: patient oriented x3, gait normal, tone normal and moves all extremities Extrem General: Yes normal to inspection and Yes capillary refill normal Assessment & Plan Assessment & Plan (1) Erectile dysfunction associated with type 2 diabetes mellitus: Code(s): E11.69 - Type 2 diabetes mellitus with other specified complication; N52.1 - Erectile dysfunction due to diseases classified elsewhere Category: Medical (2) Hypogonadism in male: Code(s): E29.1 - Testicular hypofunction Category: Medical Plan Six-month follow-up lab work Orders: Orders Testosterone, Total 6 Months E29.1 - Testicular hypofunction Complete Blood Count no Diff 6 Months E29.1 - Testicular hypofunction Prostate Specific Antigen 6 Months E29.1 - Testicular hypofunction Patient Instructions: Imaging studies, laboratory and physical exam results were discussed and reviewed in detail. No major barriers to patient understanding were identified. An opportunity to ask questions regarding the treatment plan was provided. All questions were answered. The patient expressed understanding and agreement with the above treatment plan. The patient is aware they should contact our office by phone for worsening of their current condition or the appearance of new urologic symptoms. Compliance is encouraged with any medications and followup testing that is ordered. It is a privilege to participate in the urologic care of your patient. If you have any questions or concerns regarding treatment for the above conditions, or other urologic issues, please do not hesitate to contact me. The office telephone contact is [phone]. This note is constructed using voice recognition software. While every effort has been made to ensure accuracy tunnel kiln firer errors may have been included. Yours sincerely, Dr Isaac Askew MD, D[facility] - Urology Providers of Expert, Compassionate Care for the Genitourinary System Coding Level of Care Code Est Pt Level 3 (61996) Diagnoses Erectile dysfunction associated with type 2 diabetes mellitus E11.69; N52.1 Hypogonadism in male E29.1
== END 2024-10-22 12:25 | disposition home or self-care (01) ==
PROVIDERS: PCP Internal Medicine Geriatric Medicine; Visit Provider Urology
DX: E11.69 Type 2 diabetes mellitus with other specified complication (principal); N52.1 Erectile dysfunction due to diseases classified elsewhere; E29.1 Testicular hypofunction
CPT/HCPCS: 99213

== ENCOUNTER → 2024-10-22 11:05 | Outpatient (BNVA) | payer MEDICAID, SELFPAY | PROVIDERS: PCP Internal Medicine Geriatric Medicine; Visit Provider Urology | DX: E29.1 Testicular hypofunction (principal); E11.69 Type 2 diabetes mellitus with other specified complication; N52.1 Erectile dysfunction due to diseases classified elsewhere | CPT/HCPCS: 99212 ==

== ENCOUNTER 2024-11-01 11:13 | Outpatient (AMB) | payer MEDICAID, SELFPAY ==
--- NOTE | 2024-11-01 11:13 | A.OFFVIS_ITS ---
Intake Visit Reasons: Epigastric abdominal pain Intake Note: Renny presents as a telehealth. CC: He states he is still having the pains in the stomach after eating. Allergies Penicillins [PENICILLINS] Allergy (Intermediate, Verified 11/01/24 11:13) RASH HPI HPI Epigastric abdominal pain: Details: 54 y/o male with pmhx GERD, hepatitis C, osteoarthritis, essential HTN, anxiety/depression, opioid dependency who I am calling for overdue f/u Last seen 2021 RECAP: Had seen Dr Galindo before He was initially seen for abd pain and weight loss. He started Dicyclomine 3x daily before meals with some relief. He was reporting continued weight loss and weighed himself at 177 lbs at last visit He has chronic sleep disturbance which he has had for years . He has been on benzodiazepines in the past for anxiety but is not currently taking any. LABS: HGB 18.6, high (prob 2/2 testosterone) rept 15 BMP--nml LFT--nml celiac--neg hep c ab pos in past, PCR neg ENDO: EGD-esophagitis, balloon dilation, barretts, chronic esophagitis colonoscopy-internal hemorrhoids, polyp removed-- rept 1 yr due to prep, poylps were lymphoid aggregates IMAGING: US 12/2019--fatty liver, kidney cysts BA swallow 01/2020- inconsistent GEJ opening, ?spasm or esophagitis, no mass or hernia seen CT 03/2020-- diverticular dz, non specific mural thickening of colon on left, spinal degen, enlarged prostate, kidney cysts, GB lesion US 03/2020--GB sludge GES-0 05/2020-- 5% by 2 hrs, so maybe slightly rapid RAST testing--neg levsin was added and carafate stopped as not helping plan was for rept EGD due to pain INTERIM: He has issues with epigastric pain worse with food no issues with swallowing appetite is not that good going on for couple of months has had it before on and off weight down 10 # Assessment & Plan (1) Epigastric abdominal pain: Plan: 1/ CT scan with PO contrast 2/ EGD and colonoscopy with [facility] Medical History (Updated 03/26/24 @ 14:18 by Tatyana Boyer MD) Diabetes Abdominal hernia Hepatitis C Bipolar 1 disorder Elevated cholesterol Myocardial infarction Atherosclerotic cardiovascular disease Polycythemia, secondary Cardiomyopathy Sleep apnea Fatty liver Opioid dependence Sleep disturbance Anxiety Arthritis Back pain GERD (gastroesophageal reflux disease) Hepatitis Depression HTN (hypertension) Surgical History (Updated 03/26/24 @ 14:18 by Tatyana Boyer MD) History of esophagogastroduodenoscopy (EGD) H/O colonoscopy Hx of hemorrhoidectomy Family History Father No problems noted. Mother Hx of colon cancer, stage IV Brother Lesion of liver greater than 1 cm in diameter with history of extrahepatic malignant neoplasm Social History (Updated 03/26/24 @ 11:18 by Gaurang Baldwin) Household Members: Spouse Are you a primary care manager to a significant other at home: No Do you presently have visiting nurse or other home services: No Alcohol intake: former Year quit: Nov Patient Tobacco Use Status: Former Tobacco user Years Smoked: 30+ Current occupational status: unemployed Assessment & Plan Assessment & Plan (1) Epigastric abdominal pain: Code(s): R10.13 - Epigastric pain Category: Medical Plan as above Orders: Orders CT abdomen pelvis w IV con Today R10.13 - Epigastric pain Comprehensive Met. Panel Today K75.81 - Nonalcoholic steatohepatitis (BELTRE), R10.13 - Epigastric pain C Reactive Protein Today R10.13 - Epigastric pain Complete Blood Count Auto Diff Today R10.13 - Epigastric pain Calcium, Ionized Today E83.52 - Hypercalcemia, R10.13 - Epigastric pain Medications: New sodium,potassium,mag sulfates 17.5-3.13-1.6 gram (Suprep Bowel Prep Kit) DILUTE; drink 1/2 at 6-8 pm and half at 11 PM- 1AM 354 mL 0RF Coding Level of Care Code Tele Est Pt Level 3 (12317) Diagnoses Epigastric abdominal pain R10.13
== END 2024-11-01 16:18 | disposition home or self-care (01) ==
LOC: HO.HGI 11:13
PROVIDERS: PCP Internal Medicine Geriatric Medicine; Visit Provider Internal Medicine Gastroenterology
DX: R10.13 Epigastric pain (principal)
CPT/HCPCS: 99213

== ENCOUNTER → 2024-11-01 11:13 | Outpatient (BNVA) | payer MEDICAID, SELFPAY | PROVIDERS: PCP Internal Medicine Geriatric Medicine; Visit Provider Internal Medicine Gastroenterology ==